=== PATIENT | male | born 1955 | race American Indian/Alaskan Native ===

== ENCOUNTER 2016-04-14 17:15 | Emergency (ER) | payer BC, OTHER ==
[2016-04-14 18:18] LABS: Eosinophils % (Auto) 3.5 % (0.0-4.3); Mean Corpuscular HGB Conc 33 % (32-34); Mean Corpuscular Hemoglobin 29 pg (28-32); Mean Corpuscular Volume 86 fl (84-94); Platelet Count 233 K/mm3 (140-440); Red Blood Count 4.89 M/mm3 (3.65-5.03); Red Cell Distribution Width 15.4 % (13.2-15.2); White Blood Count 4.3 K/mm3 (4.5-11.0)
[2016-04-14 19:05] LABS: Alanine Aminotransferase 10 units/L (7-56); Albumin 4.3 g/dL (3.9-5); Albumin/Globulin Ratio 1.4 %; Alkaline Phosphatase 68 units/L (35-129); Anion Gap 18 mmol/L; BUN/Creatinine Ratio 11.25; Bilirubin,Total 1.8 mg/dL (0.1-1.2); Blood Urea Nitrogen 9 mg/dL (9-20); Calcium 9.2 mg/dL (8.4-10.2); Carbon Dioxide 24 mmol/L (22-30); Chloride 101.5 mmol/L (98-107); Glucose 217 mg/dL (75-100); Lipase 15 units/L (13-60); Potassium 3.8 mmol/L (3.6-5.0); Sodium 140 mmol/L (137-145); Total Protein 7.4 g/dL (6.3-8.2)
[2016-04-14] MEDS ORDERED: NACL 0.9% 1000 ML 1,000 ML IV ONE (22:30)
[2016-04-14] MEDS ORDERED: ZOFRAN IV ONE (22:30)
[2016-04-14] MEDS ORDERED: TORADOL IV ONE (22:30)
--- NOTE | 2016-04-14 22:49 | Emergency Department Report ---
ED Abdominal Pain HPI - General Chief Complaint: Abdominal Pain Stated Complaint: ABD PAIN LT FRONT/BACK PAIN Time Seen by Provider: 04/14/16 22:25 Source: patient Mode of arrival: Ambulatory Limitations: No Limitations - History of Present Illness Initial Comments: 60-year-old male with a past medical history insulin-dependent diabetes and hypertension presents to the hospital with complaints of left lower quadrant pain radiating to the back. Patient denies previous abdominal surgeries. Pain is ongoing for the past 4 days, intermittent, sharp in nature. Pain rated 10/ 10 intensity worse with palpation. Patient had approximately one episode of vomiting daily. He denies dysuria, hematuria, or fever. - Related Data Home Medications Medication Instructions Recorded Confirmed Last Taken metFORMIN [Glucophage] 500 mg PO BID 08/18/14 06/21/15 06/21/15 Amlodipine Besylate/Benazepril 1 each PO DAILY 06/21/15 06/21/15 06/20/15 [Amlodipine-Benazepril 10-20 mg] 10-40MG AtorvaSTATin [Lipitor] 20 mg PO DAILY 06/21/15 06/21/15 06/20/15 Levothyroxine [Synthroid] 50 mcg PO QAM 06/21/15 06/21/15 06/20/15 Previous Rx's Medication Instructions Recorded Last Taken Type Ibuprofen [Motrin] 800 mg PO Q8HR PRN #30 tablet 04/15/16 Unknown Rx Ondansetron [Zofran Odt] 4 mg PO Q8HR PRN #20 tab.rapdis 04/15/16 Unknown Rx traMADol [Ultram 50 MG tab] 50 mg PO Q6HR PRN #20 tablet 04/15/16 Unknown Rx Allergies Allergy/AdvReac Type Severity Reaction Status Date / Time No Known Allergies Allergy Unverified 06/21/15 11:56 ED Review of Systems ROS: Stated complaint: ABD PAIN LT FRONT/BACK PAIN Other details as noted in HPI Comment: All other systems reviewed and negative Other: Constitutional: No fevers chills Eyes: No eye pain visual changes ENT: No ear pain or throat pain Neck: Denies pain Respiratory: Denies cough wheezing shortness of breath Cardiovascular: Denies chest pain, palpitations, syncope GI: As per HPI : Denies dysuria Musculoskeletal: Denies back pain, joint swelling Skin: Denies rash, lesions, erythema Neurologic: Denies headache, numbness, weakness Psychiatric: Denies suicidal ideation, hallucinations ED Past Medical Hx - Past Medical History Hx Hypertension: Yes Hx Diabetes: Yes (IDDM) Additional medical history: thyroid, knee problems - Surgical History Additional Surgical History: Left shoulder surgery - Social History Smoking Status: Never Smoker Substance Use Type: None - Medications Home Medications: Home Medications Medication Instructions Recorded Confirmed Last Taken Type metFORMIN [Glucophage] 500 mg PO BID 08/18/14 06/21/15 06/21/15 History Amlodipine Besylate/Benazepril 1 each PO DAILY 06/21/15 06/21/15 06/20/15 History [Amlodipine-Benazepril 10-20 mg] 10-40MG AtorvaSTATin [Lipitor] 20 mg PO DAILY 06/21/15 06/21/15 06/20/15 History Levothyroxine [Synthroid] 50 mcg PO QAM 06/21/15 06/21/15 06/20/15 History Ibuprofen [Motrin] 800 mg PO Q8HR PRN #30 tablet 04/15/16 Unknown Rx Ondansetron [Zofran Odt] 4 mg PO Q8HR PRN #20 tab.rapdis 04/15/16 Unknown Rx traMADol [Ultram 50 MG tab] 50 mg PO Q6HR PRN #20 tablet 04/15/16 Unknown Rx ED Physical Exam - General Limitations: No Limitations - Other Other exam information: General: No limitations, patient is alert in no acute distress Head exam: Atraumatic, normocephalic Eyes exam: Normal appearance, pupils equal reactive to light, extraocular movements intact ENT: Moist mucous membrane, normal oropharynx Neck exam: Normal inspection, full range of motion, no meningismus nontender Respiratory exam: Clear to auscultation bilateral, no wheezes, rales, crackles Cardiovascular: Normal rate and rhythm, normal heart sounds Abdomen: Soft, nondistended, left lower quadrant tenderness, with normal bowel sounds, no rebound, or guarding Extremity: Full range of motion normal inspection no deformity Back: Normal Inspection, full range of motion, no mild left lower lateral lumbar tenderness Neurologic: Alert, oriented x3, cranial nerves intact, no motor or sensory deficit Psychiatric: normal affect, normal mood Skin: Warm, dry, intact ED Course Vital Signs 04/14/16 04/14/16 17:28 23:11 Temperature 97.9 F Pulse Rate 89 Respiratory 20 Rate Blood Pressure 169/109 O2 Sat by Pulse 98 Oximetry - Reevaluation(s) Reevaluation #1: 04/15/16 01:15 pt has received 1 L of IVF Reevaluation #2: 04/15/16 01:20 bp 159/92 without receiving the ordered catapress ED Medical Decision Making - Lab Data Result diagrams: 04/14/16 18:01 04/14/16 18:01 Lab Results 04/14/16 04/14/16 04/15/16 Range/Units 18:01 18:01 Unknown WBC 4.3 L (4.5-11.0) K/mm3 RBC 4.89 (3.65-5.03) M/mm3 Hgb 14.0 (11.8-15.2) gm/dl Hct 42.0 (35.5-45.6) % MCV 86 (84-94) fl MCH 29 (28-32) pg MCHC 33 (32-34) % RDW 15.4 H (13.2-15.2) % Plt Count 233 (140-440) K/mm3 Lymph % (Auto) 37.8 H (13.4-35.0) % Gove % (Auto) 7.6 H (0.0-7.3) % Eos % (Auto) 3.5 (0.0-4.3) % Baso % (Auto) 1.0 (0.0-1.8) % Lymph # 1.6 (1.2-5.4) K/mm3 Gove # 0.3 (0.0-0.8) K/mm3 Eos # 0.2 (0.0-0.4) K/mm3 Baso # 0.0 (0.0-0.1) K/mm3 Seg Neutrophils % 50.1 (40.0-70.0) % Seg Neutrophils # 2.2 (1.8-7.7) K/mm3 Sodium 140 (137-145) mmol/L Potassium 3.8 (3.6-5.0) mmol/L Chloride 101.5 (98-107) mmol/L Carbon Dioxide 24 (22-30) mmol/L Anion Gap 18 mmol/L BUN 9 (9-20) mg/dL Creatinine 0.8 (0.8-1.5) mg/dL Estimated GFR > 60 ml/min BUN/Creatinine Ratio 11.25 % Glucose 217 H (75-100) mg/dL Calcium 9.2 (8.4-10.2) mg/dL Total Bilirubin 1.8 H (0.1-1.2) mg/dL AST 15 (5-40) units/L ALT 10 (7-56) units/L Alkaline Phosphatase 68 (35-129) units/L Total Protein 7.4 (6.3-8.2) g/dL Albumin 4.3 (3.9-5) g/dL Albumin/Globulin Ratio 1.4 % Lipase 15 (13-60) units/L Urine Color Yellow (Yellow) Urine Turbidity Clear (Clear) Urine pH 5.0 (5.0-7.0) Ur Specific Cardinal 1.038 H (1.003-1.030) Urine Protein <15 mg/dl (Negative) mg/dL Urine Glucose (UA) Neg (Negative) mg/dL Urine Ketones Tr (Negative) mg/dL Urine Blood Neg (Negative) Urine Nitrite Neg (Negative) Urine Bilirubin Sm (Negative) Urine Ictotest Negative (Negative) Urine Urobilinogen 4.0 (<2.0) mg/dL Ur Leukocyte Esterase Sm (Negative) Urine WBC (Auto) 7.0 H (0.0-6.0) /HPF Urine RBC (Auto) 5.0 (0.0-6.0) /HPF U Epithel Cells (Auto) 3.0 (0-13.0) /HPF Urine Mucus 2+ /HPF - Radiology Data Radiology results: report reviewed (CT abdomen and pelvis IV contrast: Tiny left renal stone no inflammation or hydro) - Medical Decision Making Plan to d/c pt home with pain meds. it is possible that patient passed a kidney stone given the finding of intrarenal stone and LLq pain. No signs of inflammatory changes seen of left lower quadrant suggestive of diverticulitis. Labs unremarkable. Patient will be sent home with symptomatic treatment with pain medication - Differential Diagnosis renal colic, diverticulitis, UTI, abdominal wall strain Critical Care Time: No Critical care attestation.: If time is entered above; I have spent that time in minutes in the direct care of this critically ill patient, excluding procedure time. ED Disposition Clinical Impression: LLQ pain, Renal stone, Diabetes HTN (hypertension) Qualifiers: Hypertension type: essential hypertension Qualified Code(s): I10 - Essential ( primary) hypertension Disposition: DISCHARGED TO HOME OR SELFCARE Is pt being admited?: No Condition: Stable Instructions: Hypertension (ED), Acute Abdominal Pain (ED), Kidney Stones (ED) Additional Instructions: Take the medication as prescribed. Return if symptoms worsen. Prescriptions: Ibuprofen [Motrin] 800 mg PO Q8HR PRN #30 tablet PRN Reason: Overdose Ondansetron [Zofran Odt] 4 mg PO Q8HR PRN #20 tab.rapdis PRN Reason: Nausea And Vomiting traMADol [Ultram 50 MG tab] 50 mg PO Q6HR PRN #20 tablet PRN Reason: Pain Referrals: PRIMARY CARE,MD [Primary Care Provider] - 3-5 Days Time of Disposition: 01:24
[2016-04-14] MEDS ORDERED: NACL ONE (22:52)
[2016-04-14] MEDS ORDERED: CATAPRES PO ONE (23:41)
--- NOTE | 2016-04-15 00:33 | Cat Scan Report ---
FINAL REPORT EXAM: CT ABDOMEN PELVIS W CON HISTORY: llq pain TECHNIQUE: CT abdomen and pelvis with IV contrast. Multiplanar reformations. PRIORS: None FINDINGS: Lung bases show no significant abnormality. No free intraperitoneal gas seen. Liver shows no significant abnormality. Normal biliary tree. Spleen shows no significant abnormality. Adrenal glands show no significant abnormality. 2 mm stone upper pole left kidney. Few small renal cysts on the right. Pancreas shows no significant abnormality. Abdominal aorta is non-aneurysmal. Normal-appearing appendix. No right lower quadrant inflammatory changes. No bowel obstruction identified. No ureteral calculus seen on either side. No acute inflammatory process seen. IMPRESSION: 1. Tiny left renal calculus. No acute inflammation. No hydronephrosis.
[2016-04-15 01:08] LABS: Bilirubin,Urine SM (Negative); Blood,Urine NEG (Negative); Ketones,Urine TR mg/dL (Negative); Leukocyte Esterase,Urine SM (Negative); Mucus,Urine 2+ /HPF; Nitrite,Urine NEG (Negative); Protein,Urine <15 mg/dL mg/dL (Negative)
[2016-04-15 02:00] VITALS: BP 159/92
== END 2016-04-15 02:07 | disposition home or self-care (01) ==
LOC: ED 17:15
DX: N20.0 Calculus of kidney (principal); I10 Essential (primary) hypertension; R10.32 Left lower quadrant pain; E11.9 Type 2 diabetes mellitus without complications
CPT/HCPCS: 36415; 74177; 80053; 81001; 83690; 85025; 96361; 96374; 96375; 99284; J1885; J2405; J7030; Q9967

== ENCOUNTER 2018-03-26 11:47 | Inpatient (IN) | payer OTHER ==
--- NOTE | 2018-03-26 12:32 | Emergency Department Report ---
ED Neuro Deficit HPI - General Chief Complaint: Weakness Stated Complaint: Slurred speech, PANCREATIC PAIN Time Seen by Provider: 03/26/18 12:06 Source: patient, family Mode of arrival: Ambulatory Limitations: Other - History of Present Illness Initial Comments: 62-year-old male presents to the ED with complaint of slurred speech onset 3 days ago. Patient denies extremity weakness. Patient was seen by PCP at the [facility] and told to come to the ER. Patient also reports possible exacerbation of his pancreatitis. Reports epigastric pain, nausea and vomiting. States his stomach issues are chronic, vomiting stopped 5 days ago. -: days(s) (3) Location: speech Presenting Symptoms: Present: Unable to Speak Clearly History of same: No Severity: mild Improves With: none Worsens With: none Associated Symptoms: nausea/vomiting. denies: chest pain, headaches, shortness of breath - Related Data Home Medications: Home Medications Medication Instructions Recorded Confirmed Last Taken Allopurinol [Zyloprim] 100 mg PO QDAY 10/26/16 03/26/18 Unknown Levothyroxine Sodium 137 mcg PO QAM 10/26/16 03/26/18 Unknown [Levothyroxine] Tamsulosin [Flomax] 0.4 mg PO QDAY 10/26/16 03/26/18 Unknown Amlodipine Besylate/Benazepril 1 each PO DAILY 03/26/18 03/26/18 Unknown [Amlodipine-Benazepril 10-20 mg] AtorvaSTATin [Lipitor] 40 mg PO QHS 03/26/18 03/26/18 Unknown Colchicine 0.6 mg PO Q24H 03/26/18 03/26/18 Unknown Etodolac 400 mg PO BID 03/26/18 03/26/18 Unknown Furosemide [Lasix] 20 mg PO QDAY 03/26/18 03/26/18 Unknown Pregabalin [Lyrica] 200 mg PO BID 03/26/18 03/26/18 Unknown cloNIDine [Catapres] 0.2 mg PO QHS 03/26/18 03/26/18 Unknown metFORMIN [Glucophage] 500 mg PO BID 03/26/18 03/26/18 Unknown Previous Rx's Medication Instructions Recorded Last Taken Type Insulin NPH/Regular [Novolin 70/30] 50 unit SQ BIDDIAB #30 day 11/08/16 Unknown Rx Allergies/Adverse Reactions: Allergies Allergy/AdvReac Type Severity Reaction Status Date / Time No Known Allergies Allergy Verified 10/26/16 13:28 ED Review of Systems ROS: Stated complaint: PANCREATIC PAIN Other details as noted in HPI Comment: All other systems reviewed and negative Constitutional: denies: chills, fever Respiratory: denies: shortness of breath Cardiovascular: denies: chest pain Gastrointestinal: abdominal pain, nausea, vomiting Neurological: other (slurred speech) ED Past Medical Hx - Past Medical History Hx Hypertension: Yes Hx Heart Attack/AMI: No Hx Congestive Heart Failure: No Hx Diabetes: Yes (IDDM) Hx Liver Disease: No Hx Renal Disease: No Hx Sickle Cell Disease: No Hx Seizures: No Hx Asthma: Yes (last episode many yrs ago) Hx COPD: No Additional medical history: thyroid, knee problems. high cholesterol. ga llstones - Surgical History Additional Surgical History: Left shoulder surgery - Social History Smoking Status: Never Smoker Substance Use Type: None - Medications Home Medications: Home Medications Medication Instructions Recorded Confirmed Last Taken Type Allopurinol [Zyloprim] 100 mg PO QDAY 10/26/16 03/26/18 Unknown History Levothyroxine Sodium 137 mcg PO QAM 10/26/16 03/26/18 Unknown History [Levothyroxine] Tamsulosin [Flomax] 0.4 mg PO QDAY 10/26/16 03/26/18 Unknown History Insulin NPH/Regular [Novolin 70/30] 50 unit SQ BIDDIAB #30 day 11/08/16 03/26/18 Unknown Rx Amlodipine Besylate/Benazepril 1 each PO DAILY 03/26/18 03/26/18 Unknown History [Amlodipine-Benazepril 10-20 mg] AtorvaSTATin [Lipitor] 40 mg PO QHS 03/26/18 03/26/18 Unknown History Colchicine 0.6 mg PO Q24H 03/26/18 03/26/18 Unknown History Etodolac 400 mg PO BID 03/26/18 03/26/18 Unknown History Furosemide [Lasix] 20 mg PO QDAY 03/26/18 03/26/18 Unknown History Pregabalin [Lyrica] 200 mg PO BID 03/26/18 03/26/18 Unknown History cloNIDine [Catapres] 0.2 mg PO QHS 03/26/18 03/26/18 Unknown History metFORMIN [Glucophage] 500 mg PO BID 03/26/18 03/26/18 Unknown History ED Neuro Physical Exam - General Limitations: No Limitations General appearance: alert, in no apparent distress Suspected Stroke: Yes - Head Head exam: Present: atraumatic, normocephalic - Eye Eye exam: Present: normal appearance - ENT ENT exam: Present: mucous membranes moist - Neck Neck exam: Present: normal inspection - Respiratory Respiratory exam: Present: normal lung sounds bilaterally. Absent: respiratory distress - Cardiovascular Cardiovascular Exam: Present: regular rate, normal rhythm - GI/Abdominal GI/Abdominal exam: Present: soft. Absent: distended - Extremities Exam Extremities exam: Present: normal inspection - Neurological Exam Neurological exam: Present: alert, oriented X3 - NIHSS Assessment Interval: Baseline 1a. Level of Consciousness: alert/keenly responsive 1b. LOC Questions: answers both correctly 1c. LOC Commands: performs tasks correctly 2. Best Gaze: normal 3. Visual: no visual loss 4. Facial Palsy: minor paralysis 5b. Motor Arm Right: no drift 5a. Motor Arm Left: drift 6a. Motor Leg Left: drift 6b. Motor Leg Right: no drift 7. Limb Ataxia: absent 8. Sensory: normal 9. Best Language: no aphasia 10. Dysarthria: mild/moderate dysarthria 11. Extinction/Inattention: no abnormality Total Score: 4 Stroke Severity: Minor Stroke - Psychiatric Psychiatric exam: Present: normal affect, normal mood - Skin Skin exam: Present: warm, dry, intact, normal color ED Course Vital Signs 03/26/18 03/26/18 11:55 12:02 Temperature 97.9 F 97.9 F Pulse Rate 84 75 Respiratory 18 15 Rate Blood Pressure 164/79 Blood Pressure 144/82 [Right] O2 Sat by Pulse 99 96 Oximetry - Lab Data Result diagrams: 03/26/18 13:21 03/26/18 13:21 Lab Results 03/26/18 03/26/18 Range/Units 13:21 13:21 WBC 4.5 (4.5-11.0) K/mm3 RBC 4.28 (3.65-5.03) M/mm3 Hgb 12.3 (11.8-15.2) gm/dl Hct 37.2 (35.5-45.6) % MCV 87 (84-94) fl MCH 29 (28-32) pg MCHC 33 (32-34) % RDW 16.1 H (13.2-15.2) % Plt Count 188 (140-440) K/mm3 Lymph % (Auto) 31.1 (13.4-35.0) % [place] % (Auto) 15.5 H (0.0-7.3) % Eos % (Auto) 6.4 H (0.0-4.3) % Baso % (Auto) 0.4 (0.0-1.8) % Lymph # 1.4 (1.2-5.4) K/mm3 [place]shaw # 0.7 (0.0-0.8) K/mm3 Eos # 0.3 (0.0-0.4) K/mm3 Baso # 0.0 (0.0-0.1) K/mm3 Seg Neutrophils % 46.6 (40.0-70.0) % Seg Neutrophils # 2.1 (1.8-7.7) K/mm3 Sodium 136 L (137-145) mmol/L Potassium 4.2 (3.6-5.0) mmol/L Chloride 97.4 L (98-107) mmol/L Carbon Dioxide 24 (22-30) mmol/L Anion Gap 19 mmol/L BUN 10 (9-20) mg/dL Creatinine 1.3 (0.8-1.5) mg/dL Estimated GFR > 60 ml/min BUN/Creatinine Ratio 8 % Glucose 444 H (75-100) mg/dL Calcium 9.2 (8.4-10.2) mg/dL Total Bilirubin 0.70 (0.1-1.2) mg/dL AST 16 (5-40) units/L ALT 32 (7-56) units/L Alkaline Phosphatase 110 (35-129) units/L Total Protein 6.7 (6.3-8.2) g/dL Albumin 3.7 L (3.9-5) g/dL Albumin/Globulin Ratio 1.2 % Lipase 20 (13-60) units/L - EKG Data -: EKG Interpreted by Nh EKG shows normal: sinus rhythm, intervals, QRS complexes, ST-T waves Rate: normal Interpretation: other (left axis deviation) - Radiology Data Radiology results: report reviewed, image reviewed - Medical Decision Making 62-year-old male with 3 day history of slurred speech. Patient also appears to have mild facial droop and slight weakness in the left arm and leg. CT head negative for any findings of acute CVA. Labs show the patient is hyperglycemic, no signs of DKA. IV fluids and insulin administered. Will admit to hospitalist for further evaluation. - Differential Diagnosis CVA, pancreatitis, DKA - Thrombolytic Inclusion/Exclusion Thrombolytic Exclusion Criteria: Symptom Onset > 3 Hours Critical care attestation.: If time is entered above; I have spent that time in minutes in the direct care of this critically ill patient, excluding procedure time. ED Disposition Clinical Impression: CVA (cerebral vascular accident) Disposition: OP ADMIT IP TO THIS HOSP Is pt being admited?: Yes Condition: Stable Referrals: PRIMARY CARE, [Primary Care Provider] - 3-5 Days Time of Disposition: 14:28
--- NOTE | 2018-03-26 13:19 | Cat Scan Report ---
FINAL REPORT EXAM: CT HEAD/BRAIN WO CON HISTORY: slurred speech TECHNIQUE: CT examination of the head without IV contrast PRIORS: None. FINDINGS: Cerebrovascular atherosclerosis is manifest as calcified plaque in the carotid siphons and the verteb ral arteries. No acute air-fluid level visualized in the included air-filled sinuses. Bone windows demonstrate no acute fracture. The brain is without mass, mass effect, hemorrhage, or acute infarct. There is no extra-axial intracranial bleed, brain bleed, or midline shift. The ventricles and sulci are age-appropriate. IMPRESSION: No acute CVA, intracranial bleed, or brain mass
[2018-03-26 13:37] LABS: Basophils % (Auto) 0.4 % (0.0-1.8); Eosinophils # (Auto) 0.3 K/mm3 (0.0-0.4); Eosinophils % (Auto) 6.4 % (0.0-4.3); Hematocrit 37.2 % (35.5-45.6); Hemoglobin 12.3 gm/dl (11.8-15.2); Lymphocytes # (Auto) 1.4 K/mm3 (1.2-5.4); Lymphocytes % (Auto) 31.1 % (13.4-35.0); Mean Corpuscular HGB Conc 33 % (32-34); Mean Corpuscular Volume 87 fl (84-94); Monocytes # (Auto) 0.7 K/mm3 (0.0-0.8); Monocytes % (Auto) 15.5 % (0.0-7.3); Platelet Count 188 K/mm3 (140-440); Red Blood Count 4.28 M/mm3 (3.65-5.03); Red Cell Distribution Width 16.1 % (13.2-15.2)
[2018-03-26 14:15] LABS: Alanine Aminotransferase 32 units/L (7-56); BUN/Creatinine Ratio 8; Blood Urea Nitrogen 10 mg/dL (9-20); Calcium 9.2 mg/dL (8.4-10.2)
[2018-03-26 14:16] LABS: Albumin 3.7 g/dL (3.9-5); Hemolysis Index 9
[2018-03-26] MEDS ORDERED: NACL 0.9% 1000 ML 1,000 ML IV ONE (14:21)
[2018-03-26] MEDS ORDERED: HumuLIN R IV ONE (14:21)
[2018-03-26 15:02] LABS: Bilirubin,Urine NEG (Negative); Blood,Urine NEG (Negative); Color,Urine Yellow (Yellow); Protein,Urine <15 mg/dL mg/dL (Negative); WBC,Urine < 1.0 /HPF (0.0-6.0)
[2018-03-26] MEDS ORDERED: HumuLIN R ONE (20:02)
[2018-03-26] MEDS ORDERED: TYLENOL PO PRN (20:03)
[2018-03-26] MEDS ORDERED: SODIUM CHLORIDE FLUSH SYRINGE 10 ML IV PRN ×2 (20:03→20:06)
[2018-03-26] MEDS ORDERED: BENAZEPRIL PO SCH (20:15)
[2018-03-26] MEDS ORDERED: AMLODIPINE BESYLATE PO SCH (20:15)
[2018-03-26] MEDS ORDERED: NON-FORMULARY (Pregabalin [Lyrica] 200 MG) PO SCH (22:00)
[2018-03-26] MEDS: LYRICA PO SCH ×2 (23:00)
[2018-03-26] MEDS: FLOMAX PO SCH (23:01)
[2018-03-26] MEDS: ASPIRIN PO SCH (23:01)
[2018-03-26] MEDS: NORVASC PO SCH (23:01)
[2018-03-26] MEDS: HumaLOG SUB-Q SCH (23:05)
[2018-03-26] MEDS: CATAPRES PO SCH (23:05)
[2018-03-26] MEDS: ZESTRIL PO SCH (23:06)
[2018-03-26] MEDS: SODIUM CHLORIDE FLUSH SYRINGE 10 ML IV SCH (23:06)
[2018-03-27 06:33] LABS: Basophils % (Auto) 0.6 % (0.0-1.8); Eosinophils # (Auto) 0.4 K/mm3 (0.0-0.4); Eosinophils % (Auto) 8.6 % (0.0-4.3); Hematocrit 34.2 % (35.5-45.6); Hemoglobin 11.4 gm/dl (11.8-15.2); Lymphocytes # (Auto) 1.3 K/mm3 (1.2-5.4); Lymphocytes % (Auto) 31.3 % (13.4-35.0); Mean Corpuscular HGB Conc 33 % (32-34); Mean Corpuscular Volume 88 fl (84-94); Monocytes # (Auto) 0.5 K/mm3 (0.0-0.8); Monocytes % (Auto) 13.1 % (0.0-7.3); Platelet Count 170 K/mm3 (140-440); Red Blood Count 3.91 M/mm3 (3.65-5.03)
--- NOTE | 2018-03-27 06:42 | Event Note ---
Date: 03/26/18 See dictated H/p in reports
[2018-03-27 06:46] LABS: Alanine Aminotransferase 29 units/L (7-56); Albumin 3.3 g/dL (3.9-5); BUN/Creatinine Ratio 9; Blood Urea Nitrogen 9 mg/dL (9-20); Calcium 8.7 mg/dL (8.4-10.2); Chol/HDL Ratio 3.38 %; HDL Cholesterol 31 mg/dL (40-59); Hemolysis Index 3; LDL Cholesterol,Direct 69 mg/dL (50-130)
[2018-03-27] MEDS: SYNTHROID PO SCH ×2 (07:01)
[2018-03-27] MEDS: LASIX PO SCH (07:01)
--- NOTE | 2018-03-27 08:24 | History and Physical Report ---
CHIEF COMPLAINT: Slurred speech of 3 days' duration and left-sided weakness 3 days duration. HISTORY OF PRESENT ILLNESS: A 62-year-old male comes in with past medical history of BPH, hypertension, hyperlipidemia, gout and peripheral neuropathy and type 2 diabetes, comes in for slurred speech and left upper extremity weakness and left lower extremity weakness for the last 3 days. The patient tolerated his mild weakness and did not seek any medical attention for the last 3 days. The patient felt that it may have been his pancreatitis. The patient was seen at the and was sent to the ER. Acute onset of left-sided weakness 3 days ago. PAST MEDICAL HISTORY: Significant for hypertension, insulin-dependent diabetes, asthma, and hypothyroidism, gout, and arthritis. Also, hyperlipidemia. PAST SURGICAL HISTORY: Left shoulder surgery. SOCIAL HISTORY: Does not smoke. No alcohol, no recreational drugs. FAMILY HISTORY: Hypertension. CURRENT MEDICATIONS: On the chart. REVIEW OF SYSTEMS: Significant for left upper extremity weakness, slurred speech, and left lower extremity weakness. Says the patient is able to walk. Otherwise, review of systems negative. PHYSICAL EXAMINATION: GENERAL: Elderly male, cooperative during examination. VITAL SIGNS: Blood pressure is 152/82. Temperature is 97.4. Pulse is 62. Respirations are 20. HEENT: Unremarkable. Left facial palsy present. Upper motor neuron type. LUNGS: Clear to auscultation and percussion. Good air entry. CARDIOVASCULAR SYSTEM: S1, S2 heard. No gallop, no murmur, no rub. Apical impulse in left fifth intercostal space in midclavicular line. ABDOMEN: Soft and benign. No hepatosplenomegaly. No guarding, no rigidity. Hernial orifices are normal. EXTREMITIES: Good pedal pulses. No pedal edema. CENTRAL NERVOUS SYSTEM: Left upper extremity 2/5 power. Left lower extremity 3+/5 power. Left facial palsy present. LABORATORY DATA: Significant for white count of 4500, H and H of 12.3 and 37.2, platelet count of 188,000. Sodium of 136, BUN and creatinine of 10 and 1.3, glucose of 144. Hemoglobin A1c of 13.2, albumin of 3.7. Urine specific gravity is 1.033. ASSESSMENT AND PLAN: 1. Acute cerebrovascular accident with left-sided weakness. Cerebrovascular accident workup. MRI, MRA, echocardiogram, and carotid duplex scan ordered. Neurology consult requested. 2. Uncontrolled diabetes. Home insulin was kept on hold because of his stroke. To be added once the swallowing is confirmed and the patient is able to eat normally. In the meantime, Accu-Cheks before meals and bedtime, and coverage. Hemoglobin A1c is high. His insulin has to be adjusted higher. 3. Hypertension. Continue amlodipine and clonidine. 4. Hyperlipidemia. Continue atorvastatin. 5. Gout. Colchicine on hold, etodolac on hold. 6. Hypothyroidism. Continue levothyroxine. 7. Peripheral neuropathy. Continue Lyrica. 8. Benign prostatic hypertrophy. Continue Flomax. 9. Deep venous thrombosis prophylaxis, Lovenox 40 mg subcutaneous daily. JOB# [id number] KANU/CORTNEY SANTIAGO
[2018-03-27] MEDS ORDERED: NON-FORMULARY (Levothyroxine Sodium [Levothyroxine] 137 MCG) PO SCH (10:00)
--- NOTE | 2018-03-27 10:58 | Magnetic Resonance Report ---
MRI BRAIN WITHOUT CONTRAST: 03/27/18 CLINICAL: Stroke. TECHNIQUE: Axial diffusion, T1, T2, gradient echo T2*, coronal and axial FLAIR and sagittal T1 sequences on a 1.5 Massiel magnet. FINDINGS: The ventricles and sulci are normal for age. Focal restricted diffusion involves the right side of the felix, abuts the midline and measures 14 x 9 mm. No other restricted diffusion. There is corresponding T2 hyperintensity in the felix on FLAIR and T2. Moderate bilateral multifocal subcortical and deep white matter hyperintensities on FLAIR and T2. No mass or mass effect. No hemorrhage, edema or extra-axial collection. No chronic microbleeds on the gradient echo sequence. Normal pituitary and optic chiasm. Intact vascular flow voids. Normal sinuses. The orbits, and soft tissues are normal. Normal calvarium and skull base. IMPRESSION: 1. An acute/subacute nonhemorrhagic right pontine infarct. 2. Moderate bilateral chronic white matter microangiopathy.
--- NOTE | 2018-03-27 11:01 | Vascular Lab Report ---
FINAL REPORT EXAM: VL CAROTID DUPLEX BILAT HISTORY: stroke COMPARISON: None. TECHNIQUE: Duplex Doppler ultrasound of the carotid arteries was performed. FINDINGS: There is a very small amount of atherosclerotic plaque in the right carotid bulb and internal carotid artery causing less than 50 percent stenosis. The right external carotid artery is patent. There ant egrade flow in the right vertebral artery. There is a small amount of intimal thickening in the left carotid bulb causing less than 50 percent s tenosis. The left internal carotid artery and external carotid artery are patent. There is antegrade flow in the left vertebral artery. Peak systolic velocities (cm/sec) are as follows: Right common carotid artery: 118.3 Right internal carotid artery: 78.4 Right external carotid artery: 100.9 Left common carotid artery: 138.8 Left internal carotid artery: 88.5 Left external carotid artery: 77.3 Peak systolic velocity ratio between the right internal carotid artery and the right common carotid a rtery: 0.66 Peak systolic velocity ratio between the left internal carotid artery and left common carotid artery: 0.64 IMPRESSION: 1. Small amount of atherosclerotic plaque in the right carotid bulb and right internal carotid artery , causing less than 50 percent stenosis. 2. Small amount of intimal thickening in the left carotid bulb causing less than 50 percent stenosis. Patent left internal carotid artery.
--- NOTE | 2018-03-27 11:07 | Magnetic Resonance Report ---
MRA HEAD WITHOUT CONTRAST: 03/27/18 CLINICAL: Stroke. TECHNIQUE: Axial 3-D [id number] MR angiography of the [place] with review of axial source images. FINDINGS: Intact [place] with no stenosis or occlusion. 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 Symmetric blood flow in the anterior, middle and posterior cerebral arteries. Normal basilar and vertebral arteries. The left vertebral artery is dominant. 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 No signs of rupture. No stenoses or occlusions.
[2018-03-27] MEDS: HumaLOG SUB-Q SCH ×4 (12:14→21:08)
[2018-03-27] MEDS: ZESTRIL PO SCH (12:15)
[2018-03-27] MEDS: NORVASC PO SCH (12:15)
[2018-03-27] MEDS: PLAVIX PO SCH (12:15)
[2018-03-27] MEDS: ZYLOPRIM PO SCH (12:15)
[2018-03-27] MEDS: FLOMAX PO SCH (12:15)
[2018-03-27] MEDS: LYRICA PO SCH ×4 (12:15→21:08)
[2018-03-27] MEDS: SODIUM CHLORIDE FLUSH SYRINGE 10 ML IV SCH ×2 (12:16→21:08)
[2018-03-27] MEDS: ASPIRIN PO SCH (12:16)
[2018-03-27] MEDS: CATAPRES PO SCH ×2 (12:25→21:09)
--- NOTE | 2018-03-27 15:41 | Consultation ---
History of Present Illness Consult date: 03/27/18 Requesting physician: CORY HAWKINS Reason for Consult: acute pontine stroke History of present illness: 62 yr old left handed male with hx of pancreatitis, hypertension, diabetes, hypothyroidism, presented to ER on 03/26/18 with hx of slurred speech for 3 days. He awakened 03/23/18 with thicjk speech, but no other problems. Since then he has developed weakness in his left arm and leg. He admits having headache Sat., a.m. when he noted a change in speech. This later faded. ER notes do not mention leg and arm weakness. The pt. meanwhile denies chest pain, palpitations, diplopia, blurred vision, dizziness, vertigo, numbness with these symptoms. Past History Past Medical History: diabetes, hypertension, hypothyroidism, other (pancreatitis) Social history: denies: smoking, alcohol abuse Family history: CAD, diabetes, hypertension, stroke Medications and Allergies Allergies Allergy/AdvReac Type Severity Reaction Status Date / Time No Known Allergies Allergy Verified 10/26/16 13:28 Home Medications Medication Instructions Recorded Confirmed Last Taken Type Allopurinol [Zyloprim] 100 mg PO QDAY 10/26/16 03/26/18 Unknown History Levothyroxine Sodium 137 mcg PO QAM 10/26/16 03/26/18 Unknown History [Levothyroxine] Tamsulosin [Flomax] 0.4 mg PO QDAY 10/26/16 03/26/18 Unknown History Insulin NPH/Regular [Novolin 70/30] 50 unit SQ BIDDIAB #30 day 11/08/16 03/26/18 Unknown Rx Amlodipine Besylate/Benazepril 1 each PO DAILY 03/26/18 03/26/18 Unknown History [Amlodipine-Benazepril 10-20 mg] AtorvaSTATin [Lipitor] 40 mg PO QHS 03/26/18 03/26/18 Unknown History Colchicine 0.6 mg PO Q24H 03/26/18 03/26/18 Unknown History Etodolac 400 mg PO BID 03/26/18 03/26/18 Unknown History Furosemide [Lasix] 20 mg PO QDAY 03/26/18 03/26/18 Unknown History Pregabalin [Lyrica] 200 mg PO BID 03/26/18 03/26/18 Unknown History cloNIDine [Catapres] 0.2 mg PO QHS 03/26/18 03/26/18 Unknown History metFORMIN [Glucophage] 500 mg PO BID 03/26/18 03/26/18 Unknown History Active Meds: Active Medications Acetaminophen (Tylenol) 650 mg PO Q4H PRN PRN Reason: Pain MILD(1-3)/Fever >100.5/[place] Allopurinol (Zyloprim) 100 mg PO QDAY [facility] Last Admin: 03/27/18 12:15 Dose: 100 mg Documented by: Amlodipine Besylate (Norvasc) 10 mg PO DAILY [facility] Last Admin: 03/27/18 12:15 Dose: 10 mg Documented by: Aspirin (Aspirin) 325 mg PO QDAY [facility] Last Admin: 03/27/18 12:16 Dose: 325 mg Documented by: Atorvastatin Calcium (Lipitor) 40 mg PO QHS [facility] Last Admin: 03/26/18 23:00 Dose: 40 mg Documented by: Clonidine HCl (Catapres) 0.2 mg PO Q12H [facility] Last Admin: 03/27/18 12:25 Dose: 0.2 mg Documented by: Clopidogrel Bisulfate (Plavix) 75 mg PO QDAY [facility] Last Admin: 03/27/18 12:15 Dose: 75 mg Documented by: Enoxaparin Sodium (Lovenox) 40 mg SUB-Q QDAY@2200 [facility] Furosemide (Lasix) 20 mg PO DAILY@0600 [facility] Last Admin: 03/27/18 07:01 Dose: 20 mg Documented by: Hydromorphone HCl (Dilaudid) 0.5 mg IV Q3H PRN PRN Reason: Pain , Severe (7-10) Insulin Human Isoph/Insulin Regular (Humulin 70/30) 50 unit SUB-Q BIDDIAB [facility] Last Admin: 03/27/18 12:25 Dose: 50 unit Documented by: Insulin Human Lispro (Humalog) 0 unit SUB-Q [facility]; Protocol Last Admin: 03/27/18 12:18 Dose: 8 unit Documented by: Levothyroxine Sodium (Synthroid) 112 mcg PO DAILY@0600 [facility] Last Admin: 03/27/18 07:01 Dose: 112 mcg Documented by: Levothyroxine Sodium (Synthroid) 25 mcg PO DAILY@0600 [facility] Last Admin: 03/27/18 07:01 Dose: 25 mcg Documented by: Lisinopril (Zestril) 20 mg PO QDAY [facility] Last Admin: 03/27/18 12:15 Dose: 20 mg Documented by: Ondansetron HCl (Zofran) 4 mg IV Q8H PRN PRN Reason: Nausea And Vomiting Oxycodone/Acetaminophen (Percocet 5/325) 1 tab PO Q6H PRN PRN Reason: Pain, Moderate (4-6) Pregabalin (Lyrica) 150 mg PO BID [facility] Last Admin: 03/27/18 12:15 Dose: 150 mg Documented by: Pregabalin (Lyrica) 50 mg PO BID [facility] Last Admin: 03/27/18 12:15 Dose: 50 mg Documented by: Sodium Chloride (Sodium Chloride Flush Syringe 10 Ml) 10 ml IV BID [facility] Last Admin: 03/27/18 12:16 Dose: 10 ml Documented by: Sodium Chloride (Sodium Chloride Flush Syringe 10 Ml) 10 ml IV PRN PRN PRN Reason: LINE FLUSH Sodium Chloride (Sodium Chloride Flush Syringe 10 Ml) 10 ml IV PRN PRN PRN Reason: LINE FLUSH Tamsulosin HCl (Flomax) 0.4 mg PO QDAY [facility] Last Admin: 03/27/18 12:15 Dose: 0.4 mg Documented by: Review of Systems All systems: negative (weakness in left arm and leg.) Physical Examination - Vital Signs Vital Signs: Vital Signs Temp Pulse Resp BP Pulse Ox 97.9 F 84 18 164/79 99 03/26/18 11:55 03/26/18 11:55 03/26/18 11:55 03/26/18 11:55 03/26/18 11:55 - Physical Exam Narrative exam: Neuurological exam - Speech very dysarthric. Language intact. 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 V-1 thru V-3 intact bilaterally, face - left droop. tongue midline, hearing intact. Motor - 5/5 on the right. 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 LLE - iliopsoas - 3-/5, Quads - 4+/5, foot dorsiflexors - 4/5, plantar flexors - 4/5 Reflexes - +1 throughout. Sensory - intact to touch and sharp bilaterally. Cerebellar - able to perform Loretta, FFM, and FTN well with right. . Can perform them with lt. hand with clumsiness and weakness, - Assessment Assessment Interval: Baseline - Level of Consciousness 1a. Level of Consciousness: alert/keenly responsive - LOC Questions 1b. LOC Questions: answers both correctly - LOC Command 1c. LOC Commands: performs tasks correctly - Best Gaze 2. Best Gaze: normal - Visual 3. Visual: no visual loss - Facial Palsy 4. Facial Palsy: minor paralysis - Motor Arm 5b. Motor Arm Right: no drift - Motor Leg 6a. Motor Leg Left: drift - Limb Ataxia 7. Limb Ataxia: absent - Sensory 8. Sensory: normal - Best Language 9. Best Language: no aphasia - Dysarthria 10. Dysarthria: mild/moderate dysarthria - Extinction and Inattention 11. Extinction/Inattention: no abnormality Results - Laboratory Findings CBC and BMP: 03/27/18 06:13 03/27/18 06:13 Abnormal Lab Findings: Abnormal Labs 03/26/18 03/26/18 03/26/18 13:21 13:21 13:21 WBC Hgb Hct RDW 16.1 H [place] % (Auto) 15.5 H Eos % (Auto) 6.4 H Sodium 136 L Chloride 97.4 L Glucose 444 H POC Glucose Hemoglobin A1c 13.2 H Total Protein Albumin 3.7 L HDL Cholesterol Ur Specific [place] 03/26/18 03/26/18 03/27/18 14:45 21:18 06:13 WBC 4.1 L Hgb 11.4 L Hct 34.2 L RDW 16.0 H [place] % (Auto) 13.1 H Eos % (Auto) 8.6 H Sodium Chloride Glucose POC Glucose 328 H Hemoglobin A1c Total Protein Albumin HDL Cholesterol Ur Specific [place] 1.033 H 03/27/18 03/27/18 06:13 07:15 WBC Hgb Hct RDW [place] % (Auto) Eos % (Auto) Sodium Chloride Glucose 380 H POC Glucose 355 H Hemoglobin A1c Total Protein 5.6 L Albumin 3.3 L HDL Cholesterol 31 L Ur Specific [place] Assessment and Plan 62 yr old male with history of pancreatitis, hypertension, hypothyroidism, presented with slurred speech present for 3 days. He gradually developed left arm and leg weakness as well. MRI scan reveals a pontine stroke. Echo and carotid dopplers are unremarkable. Plan - Will check B-12 and TFTs Continue Aspirin and atorvastatin PT, OT and Speech.
--- NOTE | 2018-03-27 16:35 | Progress Note ---
Assessment and Plan Assessment and plan: Patient is 62 yo man with a history BPH, hypertension, dyslipidemia, gout, peripheral neuropathy, type 2 DM and OA who presented to [facility] ED in slurred speech that started 3 days followed by left side weakness. * MRI brain wo contrast FINDINGS: The ventricles and sulci are normal for age. Focal restricted diffusion involves the right side of the felix, abuts the midline and measures 14 x 9 mm. No other restricted diffusion. There is corresponding T2 hyperintensity in the felix on FLAIR and T2. Moderate bilateral multifocal subcortical and deep white matter hyperintensities on FLAIR and T2. No mass or mass effect. No hemorrhage, edema or extra-axial collection. No chronic microbleeds on the gradient echo sequence. Normal pituitary and optic chiasm. Intact vascular flow voids. Normal sinuses. The o rbits, and soft tissues are normal. Normal calvarium and skull base. IMPRESSION: 1. An acute/subacute nonhemorrhagic right pontine infarct. 2. Moderate bilateral chronic white matter microangiopathy. * MRA head wo contrast: 3 mm saccular aneurysm left MCA without rupture -Acute CVA: start a/c per neurology -3 mm saccular aneurysm left MCA without rupture: I called [place] [facility] for NSY evaluation; I spoke with Lee Ann==>Angélica==> spoke with Neurosurgeon, Dr. Mancilla, who states he doesn't need transfer, needs outpatient follow up at [place], call [phone] -Type 2 DM, uncontrolled hyperglycemia, A1C 13.2: student success counselor on compliance, ssi -Hypertension: cardiac diet -Dyslipidemia: statin History Interval history: Patient was seen and examined. Follow-up on current diagnosis of CVA. Overnight uneventful. Patient denies any chest pain, shortness breath, nausea/vomiting or severe headaches. Imaging, nursing note, chart, labs and old chart reviewed. Discussed with patient. Hospitalist Physical - Physical exam Narrative exam: Gen: WDWN, NAD, Awake, Alert, Orientated HEENT: NCAT, EOMI, PERRL, OP Clear Neck: supple, no adenopathy, no thyromegaly, no JVD CVS/Heart: RRR, normal S1S2, pulses present bilaterally Chest/Lungs: CTA B, Symmetrical chest expansion, good air entry bilaterally GI/Abdomen: soft, NTND, good bowel sounds, no guarding or rebound /Bladder: no suprapubic tenderness, no CVA or paraspinal tenderness Extermity/Skin: no c/c/e, no obvious rash MSK: FROM x3, left side weakness Neuro: CN 2-12 grossly intact, no new focal deficits, dysarthric and left hemiparesis 3/5 msk strength Psych: calm - Constitutional Vitals: Temp Pulse Resp BP Pulse Ox 98.1 F 60 18 140/80 97 03/27/18 04:30 03/27/18 04:30 03/27/18 04:30 03/27/18 04:30 03/27/18 04:30 Results - Labs CBC & Chem 7: 03/27/18 06:13 03/27/18 06:13 Labs: Laboratory Last Values WBC 4.1 K/mm3 (4.5-11.0) L 03/27/18 06:13 RBC 3.91 M/mm3 (3.65-5.03) 03/27/18 06:13 Hgb 11.4 gm/dl (11.8-15.2) L 03/27/18 06:13 Hct 34.2 % (35.5-45.6) L 03/27/18 06:13 MCV 88 fl (84-94) 03/27/18 06:13 MCH 29 pg (28-32) 03/27/18 06:13 MCHC 33 % (32-34) 03/27/18 06:13 RDW 16.0 % (13.2-15.2) H 03/27/18 06:13 Plt Count 170 K/mm3 (140-440) 03/27/18 06:13 Lymph % (Auto) 31.3 % (13.4-35.0) 03/27/18 06:13 [place] % (Auto) 13.1 % (0.0-7.3) H 03/27/18 06:13 Eos % (Auto) 8.6 % (0.0-4.3) H 03/27/18 06:13 Baso % (Auto) 0.6 % (0.0-1.8) 03/27/18 06:13 Lymph # 1.3 K/mm3 (1.2-5.4) 03/27/18 06:13 [place] # 0.5 K/mm3 (0.0-0.8) 03/27/18 06:13 Eos # 0.4 K/mm3 (0.0-0.4) 03/27/18 06:13 Baso # 0.0 K/mm3 (0.0-0.1) 03/27/18 06:13 Seg Neutrophils % 46.4 % (40.0-70.0) 03/27/18 06:13 Seg Neutrophils # 1.9 K/mm3 (1.8-7.7) 03/27/18 06:13 Sodium 139 mmol/L (137-145) 03/27/18 06:13 Potassium 4.0 mmol/L (3.6-5.0) 03/27/18 06:13 Chloride 101.7 mmol/L (98-107) 03/27/18 06:13 Carbon Dioxide 26 mmol/L (22-30) 03/27/18 06:13 Anion Gap 15 mmol/L 03/27/18 06:13 BUN 9 mg/dL (9-20) 03/27/18 06:13 Creatinine 1.0 mg/dL (0.8-1.5) 03/27/18 06:13 Estimated GFR > 60 ml/min 03/27/18 06:13 BUN/Creatinine Ratio 9 % 03/27/18 06:13 Glucose 380 mg/dL (75-100) H 03/27/18 06:13 POC Glucose 355 (70-105) H 03/27/18 07:15 Hemoglobin A1c 13.2 % (4-6) H 03/26/18 13:21 Calcium 8.7 mg/dL (8.4-10.2) 03/27/18 06:13 Total Bilirubin 0.60 mg/dL (0.1-1.2) 03/27/18 06:13 AST 17 units/L (5-40) 03/27/18 06:13 ALT 29 units/L (7-56) 03/27/18 06:13 Alkaline Phosphatase 100 units/L (35-129) 03/27/18 06:13 Total Protein 5.6 g/dL (6.3-8.2) L 03/27/18 06:13 Albumin 3.3 g/dL (3.9-5) L 03/27/18 06:13 Albumin/Globulin Ratio 1.4 % 03/27/18 06:13 Triglycerides 128 mg/dL (2-149) 03/27/18 06:13 Cholesterol 105 mg/dL (50-199) 03/27/18 06:13 LDL Cholesterol Direct 69 mg/dL (50-130) 03/27/18 06:13 HDL Cholesterol 31 mg/dL (40-59) L 03/27/18 06:13 Cholesterol/HDL Ratio 3.38 % 03/27/18 06:13 Lipase 20 units/L (13-60) 03/26/18 13:21 Urine Color Yellow (Yellow) 03/26/18 14:45 Urine Turbidity Clear (Clear) 03/26/18 14:45 Urine pH 5.0 (5.0-7.0) 03/26/18 14:45 Ur Specific [place] 1.033 (1.003-1.030) H 03/26/18 14:45 Urine Protein <15 mg/dl mg/dL (Negative) 03/26/18 14:45 Urine Glucose (UA) >=500 mg/dL (Negative) 03/26/18 14:45 Urine Ketones Neg mg/dL (Negative) 03/26/18 14:45 Urine Blood Neg (Negative) 03/26/18 14:45 Urine Nitrite Neg (Negative) 03/26/18 14:45 Urine Bilirubin Neg (Negative) 03/26/18 14:45 Urine Urobilinogen 2.0 mg/dL (<2.0) 03/26/18 14:45 Ur Leukocyte Esterase Tr (Negative) 03/26/18 14:45 Urine WBC (Auto) < 1.0 /HPF (0.0-6.0) 03/26/18 14:45 Urine RBC (Auto) 1.0 /HPF (0.0-6.0) 03/26/18 14:45 U Epithel Cells (Auto) < 1.0 /HPF (0-13.0) 03/26/18 14:45
[2018-03-27 20:41] LABS: Free T4 (Free Thyroxine) 1.25 ng/dL (0.76-1.46)
[2018-03-27] MEDS: LOVENOX SUB-Q SCH (21:08)
[2018-03-28] MEDS: SYNTHROID PO SCH ×2 (05:47→05:48)
[2018-03-28] MEDS: LASIX PO SCH (05:48)
[2018-03-28] MEDS: PLAVIX PO SCH (10:24)
[2018-03-28] MEDS: CATAPRES PO SCH ×2 (10:24→21:00)
[2018-03-28] MEDS: ZESTRIL PO SCH (10:24)
[2018-03-28] MEDS: LYRICA PO SCH ×4 (10:24→22:21)
[2018-03-28] MEDS: ASPIRIN PO SCH (10:24)
[2018-03-28] MEDS: NORVASC PO SCH (10:25)
[2018-03-28] MEDS: FLOMAX PO SCH (10:25)
[2018-03-28] MEDS: HumaLOG SUB-Q SCH ×4 (10:25→22:22)
[2018-03-28] MEDS: ZYLOPRIM PO SCH (10:25)
[2018-03-28] MEDS: SODIUM CHLORIDE FLUSH SYRINGE 10 ML IV SCH ×2 (10:26→22:23)
--- NOTE | 2018-03-28 15:14 | Progress Note ---
Assessment and Plan Assessment and plan: Patient is 62 yo man with a history BPH, hypertension, dyslipidemia, gout, peripheral neuropathy, type 2 DM and OA who presented to [facility] ED in slurred speech that started 3 days followed by left side weakness. * MRI brain wo contrast FINDINGS: The ventricles and sulci are normal for age. Focal restricted diffusion involves the right side of the felix, abuts the midline and measures 14 x 9 mm. No other restricted diffusion. There is corresponding T2 hyperintensity in the felix on FLAIR and T2. Moderate bilateral multifocal subcortical and deep white matter hyperintensities on FLAIR and T2. No mass or mass effect. No hemorrhage, edema or extra-axial collection. No chronic microbleeds on the gradient echo sequence. Normal pituitary and optic chiasm. Intact vascular flow voids. Normal sinuses. The o rbits, and soft tissues are normal. Normal calvarium and skull base. IMPRESSION: 1. An acute/subacute nonhemorrhagic right pontine infarct. 2. Moderate bilateral chronic white matter microangiopathy. * MRA head wo contrast: 3 mm saccular aneurysm left MCA without rupture -Acute CVA: start a/c per neurology -3 mm saccular aneurysm left MCA without rupture: I called [place] [facility] for NSY evaluation; I spoke with Lee Ann==>Angélica==> spoke with Neurosurgeon, Dr. Mancilla, who states he doesn't need transfer, needs outpatient follow up at [place], call [phone] -Type 2 DM, uncontrolled hyperglycemia, A1C 13.2: job placement counselor on compliance, ssi -Hypertension: cardiac diet -Dyslipidemia: statin Patient needs rehab but he doesn't have insurance except for [facility] benefits. Will discharge with pt/ot and he can make an appointment with his [facility] doctor and give them my recommendation. History Interval history: Patient was seen and examined. Follow-up on current diagnosis of CVA. Overnight uneventful. Patient denies any chest pain, shortness breath, nausea/vomiting or severe headaches. Imaging, nursing note, chart, labs and old chart reviewed. Discussed with patient. Hospitalist Physical - Physical exam Narrative exam: Gen: WDWN, NAD, Awake, Alert, Orientated HEENT: NCAT, EOMI, PERRL, OP Clear Neck: supple, no adenopathy, no thyromegaly, no JVD CVS/Heart: RRR, normal S1S2, pulses present bilaterally Chest/Lungs: CTA B, Symmetrical chest expansion, good air entry bilaterally GI/Abdomen: soft, NTND, good bowel sounds, no guarding or rebound /Bladder: no suprapubic tenderness, no CVA or paraspinal tenderness Extermity/Skin: no c/c/e, no obvious rash MSK: FROM x3, left side weakness Neuro: CN 2-12 grossly intact, no new focal deficits, dysarthric and left hemiparesis 3/5 msk strength Psych: calm - Constitutional Vitals: Temp Pulse Resp BP Pulse Ox 97.6 F 60 12 145/83 98 03/28/18 08:10 03/28/18 08:10 03/28/18 08:10 03/28/18 08:10 03/28/18 08:10 Results - Labs CBC & Chem 7: 03/27/18 06:13 03/27/18 06:13 Labs: Laboratory Last Values WBC 4.1 K/mm3 (4.5-11.0) L 03/27/18 06:13 RBC 3.91 M/mm3 (3.65-5.03) 03/27/18 06:13 Hgb 11.4 gm/dl (11.8-15.2) L 03/27/18 06:13 Hct 34.2 % (35.5-45.6) L 03/27/18 06:13 MCV 88 fl (84-94) 03/27/18 06:13 MCH 29 pg (28-32) 03/27/18 06:13 MCHC 33 % (32-34) 03/27/18 06:13 RDW 16.0 % (13.2-15.2) H 03/27/18 06:13 Plt Count 170 K/mm3 (140-440) 03/27/18 06:13 Lymph % (Auto) 31.3 % (13.4-35.0) 03/27/18 06:13 [place] % (Auto) 13.1 % (0.0-7.3) H 03/27/18 06:13 Eos % (Auto) 8.6 % (0.0-4.3) H 03/27/18 06:13 Baso % (Auto) 0.6 % (0.0-1.8) 03/27/18 06:13 Lymph # 1.3 K/mm3 (1.2-5.4) 03/27/18 06:13 [place] # 0.5 K/mm3 (0.0-0.8) 03/27/18 06:13 Eos # 0.4 K/mm3 (0.0-0.4) 03/27/18 06:13 Baso # 0.0 K/mm3 (0.0-0.1) 03/27/18 06:13 Seg Neutrophils % 46.4 % (40.0-70.0) 03/27/18 06:13 Seg Neutrophils # 1.9 K/mm3 (1.8-7.7) 03/27/18 06:13 Sodium 139 mmol/L (137-145) 03/27/18 06:13 Potassium 4.0 mmol/L (3.6-5.0) 03/27/18 06:13 Chloride 101.7 mmol/L (98-107) 03/27/18 06:13 Carbon Dioxide 26 mmol/L (22-30) 03/27/18 06:13 Anion Gap 15 mmol/L 03/27/18 06:13 BUN 9 mg/dL (9-20) 03/27/18 06:13 Creatinine 1.0 mg/dL (0.8-1.5) 03/27/18 06:13 Estimated GFR > 60 ml/min 03/27/18 06:13 BUN/Creatinine Ratio 9 % 03/27/18 06:13 Glucose 380 mg/dL (75-100) H 03/27/18 06:13 POC Glucose 355 (70-105) H 03/27/18 07:15 Hemoglobin A1c 13.2 % (4-6) H 03/26/18 13:21 Calcium 8.7 mg/dL (8.4-10.2) 03/27/18 06:13 Total Bilirubin 0.60 mg/dL (0.1-1.2) 03/27/18 06:13 AST 17 units/L (5-40) 03/27/18 06:13 ALT 29 units/L (7-56) 03/27/18 06:13 Alkaline Phosphatase 100 units/L (35-129) 03/27/18 06:13 Total Protein 5.6 g/dL (6.3-8.2) L 03/27/18 06:13 Albumin 3.3 g/dL (3.9-5) L 03/27/18 06:13 Albumin/Globulin Ratio 1.4 % 03/27/18 06:13 Triglycerides 128 mg/dL (2-149) 03/27/18 06:13 Cholesterol 105 mg/dL (50-199) 03/27/18 06:13 LDL Cholesterol Direct 69 mg/dL (50-130) 03/27/18 06:13 HDL Cholesterol 31 mg/dL (40-59) L 03/27/18 06:13 Cholesterol/HDL Ratio 3.38 % 03/27/18 06:13 Lipase 20 units/L (13-60) 03/26/18 13:21 Vitamin B12 1029 pg/mL (211-911) H 03/27/18 19:25 TSH 3.100 mlU/mL (0.270-4.200) 03/27/18 19:25 Free T4 1.25 ng/dL (0.76-1.46) 03/27/18 19:25 Urine Color Yellow (Yellow) 03/26/18 14:45 Urine Turbidity Clear (Clear) 03/26/18 14:45 Urine pH 5.0 (5.0-7.0) 03/26/18 14:45 Ur Specific [place] 1.033 (1.003-1.030) H 03/26/18 14:45 Urine Protein <15 mg/dl mg/dL (Negative) 03/26/18 14:45 Urine Glucose (UA) >=500 mg/dL (Negative) 03/26/18 14:45 Urine Ketones Neg mg/dL (Negative) 03/26/18 14:45 Urine Blood Neg (Negative) 03/26/18 14:45 Urine Nitrite Neg (Negative) 03/26/18 14:45 Urine Bilirubin Neg (Negative) 03/26/18 14:45 Urine Urobilinogen 2.0 mg/dL (<2.0) 03/26/18 14:45 Ur Leukocyte Esterase Tr (Negative) 03/26/18 14:45 Urine WBC (Auto) < 1.0 /HPF (0.0-6.0) 03/26/18 14:45 Urine RBC (Auto) 1.0 /HPF (0.0-6.0) 03/26/18 14:45 U Epithel Cells (Auto) < 1.0 /HPF (0-13.0) 03/26/18 14:45
--- NOTE | 2018-03-28 15:19 | Discharge Summary ---
Providers - Providers Date of Admission: 03/26/18 14:36 Date of discharge: 03/28/18 Attending physician: CORY HAWKINS 03/26/18 20:03 Consult to Physician [CONS] Routine Comment: Consulting Provider: BINA DONOHUE Physician Instructions: Reason For Exam: cva 03/26/18 20:06 Occupational Therapy Evaluate and Treat [CONS] Routine Comment: Reason For Exam: Neuro deficits Physical Therapy Evaluation and Treat [CONS] Routine Comment: Reason For Exam: Neuro deficits Primary care physician: MARY JO GEORGE Hospitalization Condition: Stable Hospital course: Patient is 62 yo man with a history BPH, hypertension, dyslipidemia, gout, peripheral neuropathy, type 2 DM and OA who presented to [facility] ED in slurred speech that started 3 days followed by left side weakness. * MRI brain wo contrast FINDINGS: The ventricles and sulci are normal for age. Focal restricted diffusion involves the right side of the felix, abuts the midline and measures 14 x 9 mm. No other restricted diffusion. There is corresponding T2 hyperintensity in the felix on FLAIR and T2. Moderate bilateral multifocal subcortical and deep white matter hyperintensities on FLAIR and T2. No mass or mass effect. No hemorrhage, edema or extra-axial collection. No chronic microbleeds on the gradient echo sequence. Normal pituitary and optic chiasm. Intact vascular flow voids. Normal sinuses. The orbits, and soft tissues are normal. Normal calvarium and skull base. IMPRESSION: 1. An acute/subacute nonhemorrhagic right pontine infarct. 2. Moderate bilateral chronic white matter microangiopathy. * MRA head wo contrast: 3 mm saccular aneurysm left MCA without rupture -Acute CVA: a/c per neurology==> antiplt, the a/c maybe too risky with the Aneurysm. -3 mm saccular aneurysm left MCA without rupture: I called [place] [facility] for NSY evaluation; I spoke with Lee Ann==>Angélica==> spoke with Neurosurgeon, Dr. Mancilla, who states he doesn't need transfer, needs outpatient follow up at [place], call [phone] -Type 2 DM, uncontrolled hyperglycemia, A1C 13.2: career guidance counselor on compliance, ssi -Hypertension: cardiac diet -Dyslipidemia: statin Patient needs rehab but he doesn't have insurance except for [facility] benefits. Will discharge with pt/ot and he can make an appointment with his [facility] doctor and give them my recommendation. Disposition: [id number] HOME UNDER [facility] Time spent for discharge: 36 minutes Core Measure Documentation - Palliative Care Palliative Care/ Comfort Measures: Not Applicable - Core Measures Any of the following diagnoses?: stroke - VTE Discharge Requirements Deep Vein Thrombosis/Pulmonary Embolism Present on Admission: No Has pt received <5 days of overlap therapy or INR<2.0: No Anticoagulant overlap therapy prescribed at discharge: No Contraindication No Overlap Therapy order at DC: Not Indicated - Stroke Discharge Requirements Statin for LDL = or >70 mg/dl on DC: Yes Anticoag for atrial fib/atrial flutter: Not Applicable Reason for no anticoag for AF/F on DC: Not Indicated Antithrombotic for ischemic stroke: Yes Exam - Physical Exam Narrative exam: Gen: WDWN, NAD, Awake, Alert, Orientated HEENT: NCAT, EOMI, PERRL, OP Clear Neck: supple, no adenopathy, no thyromegaly, no JVD CVS/Heart: RRR, normal S1S2, pulses present bilaterally Chest/Lungs: CTA B, Symmetrical chest expansion, good air entry bilaterally GI/Abdomen: soft, NTND, good bowel sounds, no guarding or rebound /Bladder: no suprapubic tenderness, no CVA or paraspinal tenderness Extermity/Skin: no c/c/e, no obvious rash MSK: FROM x3, left side weakness Neuro: CN 2-12 grossly intact, no new focal deficits, dysarthric and left hemiparesis 3/5 msk strength Psych: calm - Constitutional Vitals: Temp Pulse Resp BP Pulse Ox 97.6 F 60 12 145/83 98 03/28/18 08:10 03/28/18 08:10 03/28/18 08:10 03/28/18 08:10 03/28/18 08:10 Plan Activity: up only with assistance, fall precautions, other (no strenous activity until cleared by [place] doctor) Diet: low salt Special Instructions: physical therapy, occupational therapy, home health RN Follow up with: [place], Primary doctor LUCY [Other] - 3 Days Prescriptions: AtorvaSTATin [Lipitor] 40 mg PO QHS #30 tablet Aspirin [Aspirin TAB] 325 mg PO QDAY #30 tablet Clopidogrel [Plavix] 75 mg PO QDAY #30 tablet Furosemide [Lasix TAB] 20 mg PO QDAY #30 tablet
--- NOTE | 2018-03-28 16:46 | Progress Note ---
Assessment and Plan 62 yr old male with history of hypertension, hypothyroidism, presented with slurred speech present for 3 days. He gradually developed left arm and leg weakness as well. MRI scan reveals a pontine stroke. Echo and carotid dopplers are unremarkable. Plan - Continue rehab. efforts Continue ASA, Clopidogrel and atorvastatin Subjective Date of service: 03/28/18 Principal diagnosis: pontine stroke Interval history: 62 yr old left handed male with hx of hypertension, diabetes, hypothyroidism, presented to ER on 03/26/18 with hx of slurred speech for 3 days. He then developed left arm and leg weakness. He has been seen by PT, OT and speech therapy. He is swallowing well and tolerating his diet. He feels his strength is stable in comparison to yesterday. Objective - Exam Narrative Exam: Neuurological exam - Speech very dysarthric. Language intact. tool design engineer - EOMs intact, no nystagmus. V-1 thru V-3 intact bilaterally, face - left droop. tongue midline, hearing intact. Motor - 5/5 on the right. Left upper extremity - deltoids - 3-/5, biceps - 2/5, triceps 5-/5, wrist extensors 2/5, finger extensors - 2/5 employee relations specialist - 2+/5. LLE - iliopsoas - 3-/5, Quads - 4+/5, foot dorsiflexors - 4/5, plantar flexors - 4/5 Reflexes - +1 throughout. Sensory - intact to touch and sharp bilaterally. Cerebellar - able to perform [place], FFM, and FTN well with right. . Can perform them with lt. hand with clumsiness and weakness, - Vital Sign Vital Signs - 12hr 03/28/18 08:10 Temperature 97.6 F Pulse Rate 60 Respiratory 12 Rate Blood Pressure 145/83 O2 Sat by Pulse 98 Oximetry - Laboratory Findings CBC and BMP: 03/27/18 06:13 03/27/18 06:13 Abnormal Lab Findings: Abnormal Labs 03/26/18 03/26/18 03/26/18 13:21 13:21 13:21 WBC Hgb Hct RDW 16.1 H [place] % (Auto) 15.5 H Eos % (Auto) 6.4 H Sodium 136 L Chloride 97.4 L Glucose 444 H POC Glucose Hemoglobin A1c 13.2 H Total Protein Albumin 3.7 L HDL Cholesterol Vitamin B12 Ur Specific [place] 03/26/18 03/26/18 03/27/18 14:45 21:18 06:13 WBC 4.1 L Hgb 11.4 L Hct 34.2 L RDW 16.0 H [place] % (Auto) 13.1 H Eos % (Auto) 8.6 H Sodium Chloride Glucose POC Glucose 328 H Hemoglobin A1c Total Protein Albumin HDL Cholesterol Vitamin B12 Ur Specific [place] 1.033 H 03/27/18 03/27/18 03/27/18 06:13 07:15 19:25 WBC Hgb Hct RDW [place] % (Auto) Eos % (Auto) Sodium Chloride Glucose 380 H POC Glucose 355 H Hemoglobin A1c Total Protein 5.6 L Albumin 3.3 L HDL Cholesterol 31 L Vitamin B12 1029 H Ur Specific [place]
[2018-03-28] MEDS ORDERED: DULCOLAX PR ONE ×2 (18:59→23:15)
[2018-03-28] MEDS: LOVENOX SUB-Q SCH (22:22)
[2018-03-28] MEDS: PERCOCET 5/325 PO PRN (22:25)
[2018-03-29] MEDS: DILAUDID IV PRN (01:17)
[2018-03-29] MEDS: SYNTHROID PO SCH ×2 (06:33)
[2018-03-29] MEDS: LASIX PO SCH (06:33)
[2018-03-29 06:46] LABS: Hematocrit 35.5 % (35.5-45.6); Hemoglobin 11.9 gm/dl (11.8-15.2); Mean Corpuscular HGB Conc 34 % (32-34); Mean Corpuscular Volume 85 fl (84-94); Platelet Count 166 K/mm3 (140-440); Red Blood Count 4.15 M/mm3 (3.65-5.03); Red Cell Distribution Width 15.6 % (13.2-15.2)
[2018-03-29 07:11] LABS: BUN/Creatinine Ratio 11; Blood Urea Nitrogen 12 mg/dL (9-20); Calcium 8.9 mg/dL (8.4-10.2); Hemolysis Index 22
[2018-03-29] MEDS: HumaLOG SUB-Q SCH ×4 (09:13→23:36)
[2018-03-29] MEDS: PERCOCET 5/325 PO PRN (10:21)
[2018-03-29] MEDS: ASPIRIN PO SCH (10:22)
[2018-03-29] MEDS: NORVASC PO SCH (10:22)
[2018-03-29] MEDS: ZESTRIL PO SCH (10:22)
[2018-03-29] MEDS: FLOMAX PO SCH (10:23)
[2018-03-29] MEDS: LYRICA PO SCH ×4 (10:23→22:15)
[2018-03-29] MEDS: ZYLOPRIM PO SCH (10:23)
[2018-03-29] MEDS: PLAVIX PO SCH (10:24)
[2018-03-29] MEDS: CATAPRES PO SCH ×2 (10:32→23:36)
--- NOTE | 2018-03-29 10:58 | Ultrasound Report ---
ULTRASOUND ABDOMEN COMPLETE: TECHNIQUE: Transabdominal ultrasound with color Doppler interrogation. HISTORY: abdominal pain, constipation. COMPARISON: none. FINDINGS: LIVER: The liver parenchyma is echogenic consistent with mild diffuse fatty infiltration. No focal mass or surface nodularity. BILIARY SYSTEM: Normal. PANCREAS: Normal. SPLEEN: Normal. KIDNEYS: Normal. AORTA/IVC: Normal. ASCITES: None. IMPRESSION: Fatty change in liver. Otherwise, unremarkable abdominal sonogram.
--- NOTE | 2018-03-29 14:09 | Progress Note ---
Assessment and Plan Assessment and plan: Patient is 62 yo man with a history BPH, hypertension, dyslipidemia, gout, peripheral neuropathy, type 2 DM and OA who presented to [facility] ED in slurred speech that started 3 days followed by left side weakness. * MRI brain wo contrast FINDINGS: The ventricles and sulci are normal for age. Focal restricted diffusion involves the right side of the felix, abuts the midline and measures 14 x 9 mm. No other restricted diffusion. There is corresponding T2 hyperintensity in the felix on FLAIR and T2. Moderate bilateral multifocal subcortical and deep white matter hyperintensities on FLAIR and T2. No mass or mass effect. No hemorrhage, edema or extra-axial collection. No chronic microbleeds on the gradient echo sequence. Normal pituitary and optic chiasm. Intact vascular flow voids. Normal sinuses. The o rbits, and soft tissues are normal. Normal calvarium and skull base. IMPRESSION: 1. An acute/subacute nonhemorrhagic right pontine infarct. 2. Moderate bilateral chronic white matter microangiopathy. 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 Mancilla, who states he doesn't need transfer, needs outpatient follow up at [place], call [phone] -Type 2 DM, uncontrolled hyperglycemia, A1C 13.2: agency legal counsel on compliance, ssi -Constipation: dulcolax supp. -Hypertension: cardiac diet -Dyslipidemia: statin Discharge planning issues: Patient needs rehab but he doesn't have insurance except for [facility] benefits. I called [place] [phone] to see if they can get him rehab, if not then I would discharge and [facility] can [facility] not walking, too unsteady per PT, d/w PT, he needs inpatient rehab, I called the [place] Utilization management for transfer, dept [phone], no one answered. I called twice. I called and spoke with Crista again and she put me through to the claims administrator, Augusto. I spoke with Augusto. Patient is in the system. He can be treated outside [place] and presents the bill for "Fee basis" and Utilization Review gone for the day (8am-4pm). [place] doesn't have inpatient but they send their stroke patient to [facility]. d/w , she is concerned abd pains and n/v. Will get abd u/s and dulcolax suppository History Interval history: Patient was seen and examined. Follow-up on current diagnosis of CVA. Overnight uneventful. Patient denies any chest pain, shortness breath, nausea/vomiting or severe headaches. Imaging, nursing note, chart, labs and old chart reviewed. Discussed with patient. Hospitalist Physical - Physical exam Narrative exam: Gen: WDWN, NAD, Awake, Alert, Orientated HEENT: NCAT, EOMI, PERRL, OP Clear Neck: supple, no adenopathy, no thyromegaly, no JVD CVS/Heart: RRR, normal S1S2, pulses present bilaterally Chest/Lungs: CTA B, Symmetrical chest expansion, good air entry bilaterally GI/Abdomen: soft, NTND, good bowel sounds, no guarding or rebound /Bladder: no suprapubic tenderness, no CVA or paraspinal tenderness Extermity/Skin: no c/c/e, no obvious rash MSK: FROM x3, left side weakness Neuro: CN 2-12 grossly intact, no new focal deficits, dysarthric and left hemiparesis 3/5 msk strength Psych: calm - Constitutional Vitals: Temp Pulse Resp BP Pulse Ox 98.0 F 72 20 147/87 96 03/29/18 05:26 03/29/18 11:51 03/29/18 10:21 03/29/18 11:51 03/29/18 11:51 Results - Labs CBC & Chem 7: 03/29/18 06:33 03/29/18 06:33 Labs: Laboratory Last Values WBC 5.7 K/mm3 (4.5-11.0) 03/29/18 06:33 RBC 4.15 M/mm3 (3.65-5.03) 03/29/18 06:33 Hgb 11.9 gm/dl (11.8-15.2) 03/29/18 06:33 Hct 35.5 % (35.5-45.6) 03/29/18 06:33 MCV 85 fl (84-94) 03/29/18 06:33 MCH 29 pg (28-32) 03/29/18 06:33 MCHC 34 % (32-34) 03/29/18 06:33 RDW 15.6 % (13.2-15.2) H 03/29/18 06:33 Plt Count 166 K/mm3 (140-440) 03/29/18 06:33 Lymph % (Auto) 31.3 % (13.4-35.0) 03/27/18 06:13 [place] % (Auto) 13.1 % (0.0-7.3) H 03/27/18 06:13 Eos % (Auto) 8.6 % (0.0-4.3) H 03/27/18 06:13 Baso % (Auto) 0.6 % (0.0-1.8) 03/27/18 06:13 Lymph # 1.3 K/mm3 (1.2-5.4) 03/27/18 06:13 [place] # 0.5 K/mm3 (0.0-0.8) 03/27/18 06:13 Eos # 0.4 K/mm3 (0.0-0.4) 03/27/18 06:13 Baso # 0.0 K/mm3 (0.0-0.1) 03/27/18 06:13 Seg Neutrophils % 46.4 % (40.0-70.0) 03/27/18 06:13 Seg Neutrophils # 1.9 K/mm3 (1.8-7.7) 03/27/18 06:13 Sodium 139 mmol/L (137-145) 03/29/18 06:33 Potassium 3.7 mmol/L (3.6-5.0) 03/29/18 06:33 Chloride 101.5 mmol/L (98-107) 03/29/18 06:33 Carbon Dioxide 24 mmol/L (22-30) 03/29/18 06:33 Anion Gap 17 mmol/L 03/29/18 06:33 BUN 12 mg/dL (9-20) 03/29/18 06:33 Creatinine 1.1 mg/dL (0.8-1.5) 03/29/18 06:33 Estimated GFR > 60 ml/min 03/29/18 06:33 BUN/Creatinine Ratio 11 % 03/29/18 06:33 Glucose 251 mg/dL (75-100) H 03/29/18 06:33 POC Glucose 329 (70-105) H 03/29/18 11:54 Hemoglobin A1c 13.2 % (4-6) H 03/26/18 13:21 Calcium 8.9 mg/dL (8.4-10.2) 03/29/18 06:33 Total Bilirubin 0.60 mg/dL (0.1-1.2) 03/27/18 06:13 AST 17 units/L (5-40) 03/27/18 06:13 ALT 29 units/L (7-56) 03/27/18 06:13 Alkaline Phosphatase 100 units/L (35-129) 03/27/18 06:13 Total Protein 5.6 g/dL (6.3-8.2) L 03/27/18 06:13 Albumin 3.3 g/dL (3.9-5) L 03/27/18 06:13 Albumin/Globulin Ratio 1.4 % 03/27/18 06:13 Triglycerides 128 mg/dL (2-149) 03/27/18 06:13 Cholesterol 105 mg/dL (50-199) 03/27/18 06:13 LDL Cholesterol Direct 69 mg/dL (50-130) 03/27/18 06:13 HDL Cholesterol 31 mg/dL (40-59) L 03/27/18 06:13 Cholesterol/HDL Ratio 3.38 % 03/27/18 06:13 Lipase 20 units/L (13-60) 03/26/18 13:21 Vitamin B12 1029 pg/mL (211-911) H 03/27/18 19:25 TSH 3.100 mlU/mL (0.270-4.200) 03/27/18 19:25 Free T4 1.25 ng/dL (0.76-1.46) 03/27/18 19:25 Urine Color Yellow (Yellow) 03/26/18 14:45 Urine Turbidity Clear (Clear) 03/26/18 14:45 Urine pH 5.0 (5.0-7.0) 03/26/18 14:45 Ur Specific [place] 1.033 (1.003-1.030) H 03/26/18 14:45 Urine Protein <15 mg/dl mg/dL (Negative) 03/26/18 14:45 Urine Glucose (UA) >=500 mg/dL (Negative) 03/26/18 14:45 Urine Ketones Neg mg/dL (Negative) 03/26/18 14:45 Urine Blood Neg (Negative) 03/26/18 14:45 Urine Nitrite Neg (Negative) 03/26/18 14:45 Urine Bilirubin Neg (Negative) 03/26/18 14:45 Urine Urobilinogen 2.0 mg/dL (<2.0) 03/26/18 14:45 Ur Leukocyte Esterase Tr (Negative) 03/26/18 14:45 Urine WBC (Auto) < 1.0 /HPF (0.0-6.0) 03/26/18 14:45 Urine RBC (Auto) 1.0 /HPF (0.0-6.0) 03/26/18 14:45 U Epithel Cells (Auto) < 1.0 /HPF (0-13.0) 03/26/18 14:45
[2018-03-29] MEDS: LOVENOX SUB-Q SCH (22:15)
[2018-03-29] MEDS: SODIUM CHLORIDE FLUSH SYRINGE 10 ML IV SCH ×2 (22:16→22:21)
[2018-03-30] MEDS: DILAUDID IV PRN ×3 (01:54→20:22)
[2018-03-30] MEDS: ZOFRAN IV PRN ×2 (01:55→20:24)
[2018-03-30] MEDS: PERCOCET 5/325 PO PRN ×2 (03:10→21:44)
[2018-03-30] MEDS: SYNTHROID PO SCH ×2 (05:51)
[2018-03-30] MEDS: LASIX PO SCH (05:51)
[2018-03-30] MEDS: HumaLOG SUB-Q SCH ×4 (08:49→21:45)
[2018-03-30] MEDS: CATAPRES PO SCH ×2 (10:40→20:21)
[2018-03-30] MEDS: LYRICA PO SCH ×4 (10:45→21:44)
[2018-03-30] MEDS: FLOMAX PO SCH (10:45)
[2018-03-30] MEDS: ZYLOPRIM PO SCH (10:45)
[2018-03-30] MEDS: PLAVIX PO SCH (10:45)
[2018-03-30] MEDS: ASPIRIN PO SCH (10:45)
[2018-03-30] MEDS: NORVASC PO SCH (10:46)
[2018-03-30] MEDS: ZESTRIL PO SCH (10:47)
[2018-03-30] MEDS: SODIUM CHLORIDE FLUSH SYRINGE 10 ML IV SCH ×2 (11:53→21:45)
--- NOTE | 2018-03-30 16:53 | Progress Note ---
Assessment and Plan Assessment and plan: Patient is 62 yo man with a history BPH, hypertension, dyslipidemia, gout, peripheral neuropathy, type 2 DM and OA who presented to [facility] ED in slurred speech that started 3 days followed by left side weakness. * MRI brain wo contrast FINDINGS: The ventricles and sulci are normal for age. Focal restricted diffusion involves the right side of the felix, abuts the midline and measures 14 x 9 mm. No other restricted diffusion. There is corresponding T2 hyperintensity in the felix on FLAIR and T2. Moderate bilateral multifocal subcortical and deep white matter hyperintensities on FLAIR and T2. No mass or mass effect. No hemorrhage, edema or extra-axial collection. No chronic microbleeds on the gradient echo sequence. Normal pituitary and optic chiasm. Intact vascular flow voids. Normal sinuses. The o rbits, and soft tissues are normal. Normal calvarium and skull base. IMPRESSION: 1. An acute/subacute nonhemorrhagic right pontine infarct. 2. Moderate bilateral chronic white matter microangiopathy. 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 Mancilla, who states he doesn't need transfer, needs outpatient follow up at [place], call [phone] -Type 2 DM, uncontrolled hyperglycemia, A1C 13.2: probation counselor on compliance, increased 70/30 to 55units bid and SSI -Constipation: dulcolax supp. -Hypertension: cardiac diet -Dyslipidemia: statin Discharge planning issues: Patient needs rehab but he doesn't have insurance except for [facility] benefits. I called [place] [phone] to see if they can get him rehab, if not then I would discharge and he can [facility] with [facility] not walking, too unsteady per PT, d/w PT, he needs inpatient rehab, I called the [place] Utilization management for transfer, dept [phone], no one answered. I called twice. I called and spoke with Crista again and she put me through to the historic site administrator, Augusto. I spoke with Augusto. Patient is in the system. He can be treated outside [place] and presents the bill for "Fee basis" and Utilization Review gone for the day (8am-4pm). [place] doesn't have inpatient but they send their stroke patient to [facility]. d/w , she is concerned abd pains and n/v. s/p abd u/s (fatty liver otherwise unremarkable) and dulcolax suppository given spoke with near nursing station waiting on wheelchair to go home, he [facility] on [facility]. History Interval history: Patient was seen and examined. Follow-up on current diagnosis of CVA. Overnight uneventful. Patient denies any chest pain, shortness breath, nausea/vomiting or severe headaches. Imaging, nursing note, chart, labs and old chart reviewed. Discussed with patient. Hospitalist Physical - Physical exam Narrative exam: Gen: WDWN, NAD, Awake, Alert, Orientated HEENT: NCAT, EOMI, PERRL, OP Clear Neck: supple, no adenopathy, no thyromegaly, no JVD CVS/Heart: RRR, normal S1S2, pulses present bilaterally Chest/Lungs: CTA B, Symmetrical chest expansion, good air entry bilaterally GI/Abdomen: soft, NTND, good bowel sounds, no guarding or rebound /Bladder: no suprapubic tenderness, no CVA or paraspinal tenderness Extermity/Skin: no c/c/e, no obvious rash MSK: FROM x3, left side weakness Neuro: CN 2-12 grossly intact, no new focal deficits, dysarthric and left hemiparesis 3/5 msk strength Psych: calm - Constitutional Vitals: Temp Pulse Resp BP Pulse Ox 98.1 F 78 20 115/62 95 03/30/18 09:22 03/30/18 09:22 03/30/18 11:53 03/30/18 10:47 03/30/18 09:22 Results - Labs CBC & Chem 7: 03/29/18 06:33 03/29/18 06:33 Labs: Laboratory Last Values WBC 5.7 K/mm3 (4.5-11.0) 03/29/18 06:33 RBC 4.15 M/mm3 (3.65-5.03) 03/29/18 06:33 Hgb 11.9 gm/dl (11.8-15.2) 03/29/18 06:33 Hct 35.5 % (35.5-45.6) 03/29/18 06:33 MCV 85 fl (84-94) 03/29/18 06:33 MCH 29 pg (28-32) 03/29/18 06:33 MCHC 34 % (32-34) 03/29/18 06:33 RDW 15.6 % (13.2-15.2) H 03/29/18 06:33 Plt Count 166 K/mm3 (140-440) 03/29/18 06:33 Lymph % (Auto) 31.3 % (13.4-35.0) 03/27/18 06:13 [place] % (Auto) 13.1 % (0.0-7.3) H 03/27/18 06:13 Eos % (Auto) 8.6 % (0.0-4.3) H 03/27/18 06:13 Baso % (Auto) 0.6 % (0.0-1.8) 03/27/18 06:13 Lymph # 1.3 K/mm3 (1.2-5.4) 03/27/18 06:13 [place] # 0.5 K/mm3 (0.0-0.8) 03/27/18 06:13 Eos # 0.4 K/mm3 (0.0-0.4) 03/27/18 06:13 Baso # 0.0 K/mm3 (0.0-0.1) 03/27/18 06:13 Seg Neutrophils % 46.4 % (40.0-70.0) 03/27/18 06:13 Seg Neutrophils # 1.9 K/mm3 (1.8-7.7) 03/27/18 06:13 Sodium 139 mmol/L (137-145) 03/29/18 06:33 Potassium 3.7 mmol/L (3.6-5.0) 03/29/18 06:33 Chloride 101.5 mmol/L (98-107) 03/29/18 06:33 Carbon Dioxide 24 mmol/L (22-30) 03/29/18 06:33 Anion Gap 17 mmol/L 03/29/18 06:33 BUN 12 mg/dL (9-20) 03/29/18 06:33 Creatinine 1.1 mg/dL (0.8-1.5) 03/29/18 06:33 Estimated GFR > 60 ml/min 03/29/18 06:33 BUN/Creatinine Ratio 11 % 03/29/18 06:33 Glucose 251 mg/dL (75-100) H 03/29/18 06:33 POC Glucose 222 (70-105) H 03/30/18 11:58 Hemoglobin A1c 13.2 % (4-6) H 03/26/18 13:21 Calcium 8.9 mg/dL (8.4-10.2) 03/29/18 06:33 Total Bilirubin 0.60 mg/dL (0.1-1.2) 03/27/18 06:13 AST 17 units/L (5-40) 03/27/18 06:13 ALT 29 units/L (7-56) 03/27/18 06:13 Alkaline Phosphatase 100 units/L (35-129) 03/27/18 06:13 Total Protein 5.6 g/dL (6.3-8.2) L 03/27/18 06:13 Albumin 3.3 g/dL (3.9-5) L 03/27/18 06:13 Albumin/Globulin Ratio 1.4 % 03/27/18 06:13 Triglycerides 128 mg/dL (2-149) 03/27/18 06:13 Cholesterol 105 mg/dL (50-199) 03/27/18 06:13 LDL Cholesterol Direct 69 mg/dL (50-130) 03/27/18 06:13 HDL Cholesterol 31 mg/dL (40-59) L 03/27/18 06:13 Cholesterol/HDL Ratio 3.38 % 03/27/18 06:13 Lipase 20 units/L (13-60) 03/26/18 13:21 Vitamin B12 1029 pg/mL (211-911) H 03/27/18 19:25 TSH 3.100 mlU/mL (0.270-4.200) 03/27/18 19:25 Free T4 1.25 ng/dL (0.76-1.46) 03/27/18 19:25 Urine Color Yellow (Yellow) 03/26/18 14:45 Urine Turbidity Clear (Clear) 03/26/18 14:45 Urine pH 5.0 (5.0-7.0) 03/26/18 14:45 Ur Specific [place] 1.033 (1.003-1.030) H 03/26/18 14:45 Urine Protein <15 mg/dl mg/dL (Negative) 03/26/18 14:45 Urine Glucose (UA) >=500 mg/dL (Negative) 03/26/18 14:45 Urine Ketones Neg mg/dL (Negative) 03/26/18 14:45 Urine Blood Neg (Negative) 03/26/18 14:45 Urine Nitrite Neg (Negative) 03/26/18 14:45 Urine Bilirubin Neg (Negative) 03/26/18 14:45 Urine Urobilinogen 2.0 mg/dL (<2.0) 03/26/18 14:45 Ur Leukocyte Esterase Tr (Negative) 03/26/18 14:45 Urine WBC (Auto) < 1.0 /HPF (0.0-6.0) 03/26/18 14:45 Urine RBC (Auto) 1.0 /HPF (0.0-6.0) 03/26/18 14:45 U Epithel Cells (Auto) < 1.0 /HPF (0-13.0) 03/26/18 14:45
[2018-03-30] MEDS: LOVENOX SUB-Q SCH (21:43)
[2018-03-31] MEDS: DILAUDID IV PRN ×4 (04:56→23:09)
[2018-03-31] MEDS: LASIX PO SCH (05:00)
[2018-03-31] MEDS: SYNTHROID PO SCH ×2 (05:00)
[2018-03-31 05:40] LABS: Hematocrit 33.4 % (35.5-45.6); Hemoglobin 11.2 gm/dl (11.8-15.2); Mean Corpuscular HGB Conc 33 % (32-34); Mean Corpuscular Volume 87 fl (84-94); Platelet Count 163 K/mm3 (140-440); Red Blood Count 3.85 M/mm3 (3.65-5.03); Red Cell Distribution Width 16.2 % (13.2-15.2)
[2018-03-31 05:56] LABS: BUN/Creatinine Ratio 15; Blood Urea Nitrogen 17 mg/dL (9-20); Calcium 8.7 mg/dL (8.4-10.2); Hemolysis Index 47
[2018-03-31] MEDS: HumaLOG SUB-Q SCH ×4 (08:13→23:08)
[2018-03-31] MEDS: PLAVIX PO SCH (10:23)
[2018-03-31] MEDS: LYRICA PO SCH ×4 (10:23→21:34)
[2018-03-31] MEDS: ZESTRIL PO SCH (10:23)
[2018-03-31] MEDS: ASPIRIN PO SCH (10:23)
[2018-03-31] MEDS: NORVASC PO SCH (10:24)
[2018-03-31] MEDS: CATAPRES PO SCH ×2 (10:24→21:33)
[2018-03-31] MEDS: FLOMAX PO SCH (10:24)
[2018-03-31] MEDS: ZYLOPRIM PO SCH (10:24)
--- NOTE | 2018-03-31 15:27 | Progress Note ---
Assessment and Plan Assessment and plan: Patient is 62 yo man with a history BPH, hypertension, dyslipidemia, gout, peripheral neuropathy, type 2 DM and OA who presented to [facility] ED in slurred speech that started 3 days followed by left side weakness. * MRI brain wo contrast FINDINGS: The ventricles and sulci are normal for age. Focal restricted diffusion involves the right side of the felix, abuts the midline and measures 14 x 9 mm. No other restricted diffusion. There is corresponding T2 hyperintensity in the felix on FLAIR and T2. Moderate bilateral multifocal subcortical and deep white matter hyperintensities on FLAIR and T2. No mass or mass effect. No hemorrhage, edema or extra-axial collection. No chronic microbleeds on the gradient echo sequence. Normal pituitary and optic chiasm. Intact vascular flow voids. Normal sinuses. The o rbits, and soft tissues are normal. Normal calvarium and skull base. IMPRESSION: 1. An acute/subacute nonhemorrhagic right pontine infarct. 2. Moderate bilateral chronic white matter microangiopathy. 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 Mancilla, who states he doesn't need transfer, needs outpatient follow up at [place], call [phone] -Type 2 DM, uncontrolled hyperglycemia, A1C 13.2: treatment counselor on compliance, increased 70/30 to 55units bid and SSI -Constipation: dulcolax supp. -Hypertension: cardiac diet -Dyslipidemia: statin Discharge planning issues: Patient needs rehab but he doesn't have insurance except for [facility] benefits. I called [place] [phone] to see if they can get him rehab, if not then I would discharge and he can [facility] not walking, too unsteady per PT, d/w PT, he needs inpatient rehab, I called the [place] Utilization management for transfer, dept [phone], no one answered. I called twice. I called and spoke with Crista again and she put me through to the staffing administrator, Augusto. I spoke with Augusto. Patient is in the system. He can be treated outside [place] and presents the bill for "Fee basis" and Utilization Review gone for the day (8am-4pm). [place] doesn't have inpatient but they send their stroke patient to [facility]. d/w , she is concerned abd pains and n/v. s/p abd u/s (fatty liver otherwise unremarkable) and dulcolax suppository given spoke with in personal again today anticipate discharge tomorrow, I have asked naun Lara to speak with , patient has an appointment with the [place] on Sunday. History Interval history: Patient was seen and examined. Follow-up on current diagnosis of CVA. Overnight uneventful. Patient denies any chest pain, shortness breath, nausea/vomiting or severe headaches. Imaging, nursing note, chart, labs and old chart reviewed. Discussed with patient. Hospitalist Physical - Physical exam Narrative exam: Gen: WDWN, NAD, Awake, Alert, Orientated HEENT: NCAT, EOMI, PERRL, OP Clear Neck: supple, no adenopathy, no thyromegaly, no JVD CVS/Heart: RRR, normal S1S2, pulses present bilaterally Chest/Lungs: CTA B, Symmetrical chest expansion, good air entry bilaterally GI/Abdomen: soft, NTND, good bowel sounds, no guarding or rebound /Bladder: no suprapubic tenderness, no CVA or paraspinal tenderness Extermity/Skin: no c/c/e, no obvious rash MSK: FROM x3, left side weakness Neuro: CN 2-12 grossly intact, no new focal deficits, dysarthric and left hemiparesis 3/5 msk strength Psych: calm - Constitutional Vitals: Temp Pulse Resp BP Pulse Ox 97.8 F 67 20 131/69 95 03/31/18 09:01 03/31/18 09:01 03/31/18 12:11 03/31/18 10:24 03/31/18 09:01 Results - Labs CBC & Chem 7: 03/31/18 05:00 03/31/18 05:00 Labs: Laboratory Last Values WBC 6.6 K/mm3 (4.5-11.0) 03/31/18 05:00 RBC 3.85 M/mm3 (3.65-5.03) 03/31/18 05:00 Hgb 11.2 gm/dl (11.8-15.2) L 03/31/18 05:00 Hct 33.4 % (35.5-45.6) L 03/31/18 05:00 MCV 87 fl (84-94) 03/31/18 05:00 MCH 29 pg (28-32) 03/31/18 05:00 MCHC 33 % (32-34) 03/31/18 05:00 RDW 16.2 % (13.2-15.2) H 03/31/18 05:00 Plt Count 163 K/mm3 (140-440) 03/31/18 05:00 Lymph % (Auto) 31.3 % (13.4-35.0) 03/27/18 06:13 [place] % (Auto) 13.1 % (0.0-7.3) H 03/27/18 06:13 Eos % (Auto) 8.6 % (0.0-4.3) H 03/27/18 06:13 Baso % (Auto) 0.6 % (0.0-1.8) 03/27/18 06:13 Lymph # 1.3 K/mm3 (1.2-5.4) 03/27/18 06:13 [place] # 0.5 K/mm3 (0.0-0.8) 03/27/18 06:13 Eos # 0.4 K/mm3 (0.0-0.4) 03/27/18 06:13 Baso # 0.0 K/mm3 (0.0-0.1) 03/27/18 06:13 Seg Neutrophils % 46.4 % (40.0-70.0) 03/27/18 06:13 Seg Neutrophils # 1.9 K/mm3 (1.8-7.7) 03/27/18 06:13 Sodium 138 mmol/L (137-145) 03/31/18 05:00 Potassium 4.2 mmol/L (3.6-5.0) 03/31/18 05:00 Chloride 99.4 mmol/L (98-107) 03/31/18 05:00 Carbon Dioxide 24 mmol/L (22-30) 03/31/18 05:00 Anion Gap 19 mmol/L 03/31/18 05:00 BUN 17 mg/dL (9-20) 03/31/18 05:00 Creatinine 1.1 mg/dL (0.8-1.5) 03/31/18 05:00 Estimated GFR > 60 ml/min 03/31/18 05:00 BUN/Creatinine Ratio 15 % 03/31/18 05:00 Glucose 297 mg/dL (75-100) H 03/31/18 05:00 POC Glucose 276 (70-105) H 03/31/18 05:53 Hemoglobin A1c 13.2 % (4-6) H 03/26/18 13:21 Calcium 8.7 mg/dL (8.4-10.2) 03/31/18 05:00 Total Bilirubin 0.60 mg/dL (0.1-1.2) 03/27/18 06:13 AST 17 units/L (5-40) 03/27/18 06:13 ALT 29 units/L (7-56) 03/27/18 06:13 Alkaline Phosphatase 100 units/L (35-129) 03/27/18 06:13 Total Protein 5.6 g/dL (6.3-8.2) L 03/27/18 06:13 Albumin 3.3 g/dL (3.9-5) L 03/27/18 06:13 Albumin/Globulin Ratio 1.4 % 03/27/18 06:13 Triglycerides 128 mg/dL (2-149) 03/27/18 06:13 Cholesterol 105 mg/dL (50-199) 03/27/18 06:13 LDL Cholesterol Direct 69 mg/dL (50-130) 03/27/18 06:13 HDL Cholesterol 31 mg/dL (40-59) L 03/27/18 06:13 Cholesterol/HDL Ratio 3.38 % 03/27/18 06:13 Lipase 20 units/L (13-60) 03/26/18 13:21 Vitamin B12 1029 pg/mL (211-911) H 03/27/18 19:25 TSH 3.100 mlU/mL (0.270-4.200) 03/27/18 19:25 Free T4 1.25 ng/dL (0.76-1.46) 03/27/18 19:25 Urine Color Yellow (Yellow) 03/26/18 14:45 Urine Turbidity Clear (Clear) 03/26/18 14:45 Urine pH 5.0 (5.0-7.0) 03/26/18 14:45 Ur Specific [place] 1.033 (1.003-1.030) H 03/26/18 14:45 Urine Protein <15 mg/dl mg/dL (Negative) 03/26/18 14:45 Urine Glucose (UA) >=500 mg/dL (Negative) 03/26/18 14:45 Urine Ketones Neg mg/dL (Negative) 03/26/18 14:45 Urine Blood Neg (Negative) 03/26/18 14:45 Urine Nitrite Neg (Negative) 03/26/18 14:45 Urine Bilirubin Neg (Negative) 03/26/18 14:45 Urine Urobilinogen 2.0 mg/dL (<2.0) 03/26/18 14:45 Ur Leukocyte Esterase Tr (Negative) 03/26/18 14:45 Urine WBC (Auto) < 1.0 /HPF (0.0-6.0) 03/26/18 14:45 Urine RBC (Auto) 1.0 /HPF (0.0-6.0) 03/26/18 14:45 U Epithel Cells (Auto) < 1.0 /HPF (0-13.0) 03/26/18 14:45
[2018-03-31] MEDS: LOVENOX SUB-Q SCH (21:34)
[2018-03-31] MEDS: SODIUM CHLORIDE FLUSH SYRINGE 10 ML IV SCH ×2 (21:35)
[2018-04-01] MEDS: LASIX PO SCH (06:15)
[2018-04-01] MEDS: SYNTHROID PO SCH ×2 (06:15)
[2018-04-01] MEDS: ZESTRIL PO SCH (09:15)
[2018-04-01] MEDS: PLAVIX PO SCH (09:16)
[2018-04-01] MEDS: ASPIRIN PO SCH (09:16)
[2018-04-01] MEDS: LYRICA PO SCH ×4 (09:17→22:04)
[2018-04-01] MEDS: DILAUDID IV PRN ×3 (09:18→22:19)
[2018-04-01] MEDS: FLOMAX PO SCH (09:18)
[2018-04-01] MEDS: ZYLOPRIM PO SCH (09:18)
[2018-04-01] MEDS: NORVASC PO SCH (09:18)
[2018-04-01] MEDS: HumaLOG SUB-Q SCH ×4 (09:28→22:20)
[2018-04-01] MEDS: SODIUM CHLORIDE FLUSH SYRINGE 10 ML IV SCH ×2 (09:29→22:04)
--- NOTE | 2018-04-01 10:20 | Progress Note ---
Assessment and Plan Assessment and plan: Patient is 62 yo man with a history BPH, hypertension, dyslipidemia, gout, peripheral neuropathy, type 2 DM and OA who presented to [facility] ED in slurred speech that started 3 days followed by left side weakness. * MRI brain wo contrast FINDINGS: The ventricles and sulci are normal for age. Focal restricted diffusion involves the right side of the felix, abuts the midline and measures 14 x 9 mm. No other restricted diffusion. There is corresponding T2 hyperintensity in the felix on FLAIR and T2. Moderate bilateral multifocal subcortical and deep white matter hyperintensities on FLAIR and T2. No mass or mass effect. No hemorrhage, edema or extra-axial collection. No chronic microbleeds on the gradient echo sequence. Normal pituitary and optic chiasm. Intact vascular flow voids. Normal sinuses. The o rbits, and soft tissues are normal. Normal calvarium and skull base. IMPRESSION: 1. An acute/subacute nonhemorrhagic right pontine infarct. 2. Moderate bilateral chronic white matter microangiopathy. 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 Mancilla, who states he doesn't need transfer, needs outpatient follow up at [place], call [phone] -Type 2 DM, uncontrolled hyperglycemia, A1C 13.2: securities counselor on compliance, increased 70/30 to 55units bid and SSI -Constipation: dulcolax supp. -Hypertension: cardiac diet -Dyslipidemia: statin Discharge planning issues: Patient needs rehab but he doesn't have insurance except for [facility] benefits. I called [place] [phone] to see if they can get him rehab, if not then I would discharge and [facility] can [facility]. He is not walking, too unsteady per PT, d/w PT, he needs inpatient rehab, I called the [place] Utilization management for transfer, dept [phone], no one answered. I called twice. I called and spoke with Crista (dehydration plant operator) again and she put me through to the facility administrator, Augusto. I spoke with Augusto. Lubna roberts is in the system per Augusto. He can be treated outside [place] and presents the bill for "Fee basis" per Augusto and Utilization Review gone for the day (8am-4pm Sunday to Sunday). [facility] doesn't have inpatient rehab but they send their stroke patient to [facility]. d/w , she is concerned about chronic abd pains and n/v. s/p abd u/s (fatty liver otherwise unremarkable) and dulcolax suppository given I spoke with today, her concerns are the following: no Physical therapy done this past weekend, wants to get him transferred to [facility] hospital, patient needs wheelchair, home not handicap freely and constipation anticipate discharge tomorrow, I have asked naun Lara to speak with , patient has an appointment with the [facility] on Sunday. I called [facility] hospital again and asked for Transfer/Utilization, they are closed today per Dillon (from switchboard) and he reluctantly transferred me and I got no answer. History Interval history: Patient was seen and examined. Follow-up on current diagnosis of CVA. Overnight uneventful. Patient denies any chest pain, shortness breath, nausea/vomiting or severe headaches. Imaging, nursing note, chart, labs and old chart reviewed. Discussed with patient. Hospitalist Physical - Physical exam Narrative exam: Gen: WDWN, NAD, Awake, Alert, Orientated HEENT: NCAT, EOMI, PERRL, OP Clear Neck: supple, no adenopathy, no thyromegaly, no JVD CVS/Heart: RRR, normal S1S2, pulses present bilaterally Chest/Lungs: CTA B, Symmetrical chest expansion, good air entry bilaterally GI/Abdomen: soft, NTND, good bowel sounds, no guarding or rebound /Bladder: no suprapubic tenderness, no CVA or paraspinal tenderness Extermity/Skin: no c/c/e, no obvious rash MSK: FROM x3, left side weakness Neuro: CN 2-12 grossly intact, no new focal deficits, dysarthric and left hemiparesis 3/5 msk strength Psych: calm - Constitutional Vitals: Temp Pulse Resp BP Pulse Ox 98.2 F 76 18 147/70 94 04/01/18 08:38 04/01/18 09:18 04/01/18 08:37 04/01/18 09:18 04/01/18 08:37 Results - Labs CBC & Chem 7: 03/31/18 05:00 03/31/18 05:00 Labs: Laboratory Last Values WBC 6.6 K/mm3 (4.5-11.0) 03/31/18 05:00 RBC 3.85 M/mm3 (3.65-5.03) 03/31/18 05:00 Hgb 11.2 gm/dl (11.8-15.2) L 03/31/18 05:00 Hct 33.4 % (35.5-45.6) L 03/31/18 05:00 MCV 87 fl (84-94) 03/31/18 05:00 MCH 29 pg (28-32) 03/31/18 05:00 MCHC 33 % (32-34) 03/31/18 05:00 RDW 16.2 % (13.2-15.2) H 03/31/18 05:00 Plt Count 163 K/mm3 (140-440) 03/31/18 05:00 Lymph % (Auto) 31.3 % (13.4-35.0) 03/27/18 06:13 [place] % (Auto) 13.1 % (0.0-7.3) H 03/27/18 06:13 Eos % (Auto) 8.6 % (0.0-4.3) H 03/27/18 06:13 Baso % (Auto) 0.6 % (0.0-1.8) 03/27/18 06:13 Lymph # 1.3 K/mm3 (1.2-5.4) 03/27/18 06:13 [place] # 0.5 K/mm3 (0.0-0.8) 03/27/18 06:13 Eos # 0.4 K/mm3 (0.0-0.4) 03/27/18 06:13 Baso # 0.0 K/mm3 (0.0-0.1) 03/27/18 06:13 Seg Neutrophils % 46.4 % (40.0-70.0) 03/27/18 06:13 Seg Neutrophils # 1.9 K/mm3 (1.8-7.7) 03/27/18 06:13 Sodium 138 mmol/L (137-145) 03/31/18 05:00 Potassium 4.2 mmol/L (3.6-5.0) 03/31/18 05:00 Chloride 99.4 mmol/L (98-107) 03/31/18 05:00 Carbon Dioxide 24 mmol/L (22-30) 03/31/18 05:00 Anion Gap 19 mmol/L 03/31/18 05:00 BUN 17 mg/dL (9-20) 03/31/18 05:00 Creatinine 1.1 mg/dL (0.8-1.5) 03/31/18 05:00 Estimated GFR > 60 ml/min 03/31/18 05:00 BUN/Creatinine Ratio 15 % 03/31/18 05:00 Glucose 297 mg/dL (75-100) H 03/31/18 05:00 POC Glucose 276 (70-105) H 03/31/18 05:53 Hemoglobin A1c 13.2 % (4-6) H 03/26/18 13:21 Calcium 8.7 mg/dL (8.4-10.2) 03/31/18 05:00 Total Bilirubin 0.60 mg/dL (0.1-1.2) 03/27/18 06:13 AST 17 units/L (5-40) 03/27/18 06:13 ALT 29 units/L (7-56) 03/27/18 06:13 Alkaline Phosphatase 100 units/L (35-129) 03/27/18 06:13 Total Protein 5.6 g/dL (6.3-8.2) L 03/27/18 06:13 Albumin 3.3 g/dL (3.9-5) L 03/27/18 06:13 Albumin/Globulin Ratio 1.4 % 03/27/18 06:13 Triglycerides 128 mg/dL (2-149) 03/27/18 06:13 Cholesterol 105 mg/dL (50-199) 03/27/18 06:13 LDL Cholesterol Direct 69 mg/dL (50-130) 03/27/18 06:13 HDL Cholesterol 31 mg/dL (40-59) L 03/27/18 06:13 Cholesterol/HDL Ratio 3.38 % 03/27/18 06:13 Lipase 20 units/L (13-60) 03/26/18 13:21 Vitamin B12 1029 pg/mL (211-911) H 03/27/18 19:25 TSH 3.100 mlU/mL (0.270-4.200) 03/27/18 19:25 Free T4 1.25 ng/dL (0.76-1.46) 03/27/18 19:25 Urine Color Yellow (Yellow) 03/26/18 14:45 Urine Turbidity Clear (Clear) 03/26/18 14:45 Urine pH 5.0 (5.0-7.0) 03/26/18 14:45 Ur Specific [place] 1.033 (1.003-1.030) H 03/26/18 14:45 Urine Protein <15 mg/dl mg/dL (Negative) 03/26/18 14:45 Urine Glucose (UA) >=500 mg/dL (Negative) 03/26/18 14:45 Urine Ketones Neg mg/dL (Negative) 03/26/18 14:45 Urine Blood Neg (Negative) 03/26/18 14:45 Urine Nitrite Neg (Negative) 03/26/18 14:45 Urine Bilirubin Neg (Negative) 03/26/18 14:45 Urine Urobilinogen 2.0 mg/dL (<2.0) 03/26/18 14:45 Ur Leukocyte Esterase Tr (Negative) 03/26/18 14:45 Urine WBC (Auto) < 1.0 /HPF (0.0-6.0) 03/26/18 14:45 Urine RBC (Auto) 1.0 /HPF (0.0-6.0) 03/26/18 14:45 U Epithel Cells (Auto) < 1.0 /HPF (0-13.0) 03/26/18 14:45
--- NOTE | 2018-04-01 10:25 | Discharge Summary ---
Providers - Providers Date of Admission: 03/26/18 14:36 Date of discharge: 04/01/18 Attending physician: CORY HAWKINS 03/26/18 20:03 Consult to Physician [CONS] Routine Comment: Consulting Provider: BINA DONOHUE Physician Instructions: Reason For Exam: cva 03/26/18 20:06 Occupational Therapy Evaluate and Treat [CONS] Routine Comment: Reason For Exam: Neuro deficits Physical Therapy Evaluation and Treat [CONS] Routine Comment: Reason For Exam: Neuro deficits Primary care physician: MARY JO GEORGE Hospitalization Condition: Stable Hospital course: Patient is 62 yo man with a history BPH, hypertension, dyslipidemia, gout, peripheral neuropathy, type 2 DM and OA who presented to [facility] ED in slurred speech that started 3 days followed by left side weakness. * MRI brain wo contrast FINDINGS: The ventricles and sulci are normal for age. Focal restricted diffusion involves the right side of the felix, abuts the midline and measures 14 x 9 mm. No other restricted diffusion. There is corresponding T2 hyperintensity in the felix on FLAIR and T2. Moderate bilateral multifocal subcortical and deep white matter hyperintensities on FLAIR and T2. No mass or mass effect. No hemorrhage, edema or extra-axial collection. No chronic microbleeds on the gradient echo sequence. Normal pituitary and optic chiasm. Intact vascular flow voids. Normal sinuses. The orbits, and soft tissues are normal. Normal calvarium and skull base. IMPRESSION: 1. An acute/subacute nonhemorrhagic right pontine infarct. 2. Moderate bilateral chronic white matter microangiopathy. * MRA head wo contrast: 3 mm saccular aneurysm left MCA without rupture -Acute Ischemic CVA with left hemiparesis: continue dual antiplt, a/c maybe too risky with the aneursym -3 mm saccular aneurysm left MCA without rupture: I called [place] [facility] [place] for NSY evaluation; I spoke with Lee Ann==>Angélica==> spoke with Neurosurgeon, Dr. Mancilla, who states he doesn't need transfer, needs outpatient follow up at [place], call [phone] -Type 2 DM, uncontrolled hyperglycemia, A1C 13.2: senior living sales counselor on compliance, increased 70/30 to 55units bid and SSI -Constipation: dulcolax supp. -Hypertension: cardiac diet -Dyslipidemia: statin Discharge planning issues: Patient needs rehab but he doesn't have insurance except for [facility] benefits. I called [place] [phone] to see if they can get him rehab, if not then I would discharge and he can [facility] with [facility]. He is not walking, too unsteady per PT, d/w PT, he needs inpatient rehab, I called the [place] Utilization management for transfer, dept [phone], no one answered. I called twice. I called and spoke with Crista (cutting machine operator) again and she put me through to the jr. systems administrator, Augusto. I spoke with Augusto. Patient is in the system per Augusto. He can be treated outside [place] and presents the bill for "Fee basis" per Augusto and Utilization Review gone for the day (8am-4pm Sunday to Sunday). [facility] doesn't have inpatient rehab but they send their stroke patient to [facility]. d/w , she is concerned about chronic abd pains and n/v. s/p abd u/s (fatty liver otherwise unremarkable) and dulcolax suppository given I spoke with today, her concerns are the following: no Physical therapy done this past weekend, wants to get him transferred to [facility] hospital, patient needs wheelchair, home not handicap freely and constipation. Patient has anticipate discharge tomorrow, I have asked naun Lara to speak with , [facility]. I called [place] hospital again and asked for Transfer/Utilization, they are closed today per Dillon (from switchboard) and he reluctantly transferred me and I got no answer. Disposition: DC/TX- HOME [facility] Time spent for discharge: 35 minutes Core Measure Documentation - Palliative Care Palliative Care/ Comfort Measures: Not Applicable - Core Measures Any of the following diagnoses?: stroke - VTE Discharge Requirements Deep Vein Thrombosis/Pulmonary Embolism Present on Admission: No Has pt received <5 days of overlap therapy or INR<2.0: No Anticoagulant overlap therapy prescribed at discharge: No Contraindication No Overlap Therapy order at DC: Not Indicated - Stroke Discharge Requirements Statin for LDL = or >70 mg/dl on DC: Yes Anticoag for atrial fib/atrial flutter: Not Applicable Reason for no anticoag for AF/F on DC: Not Indicated Antithrombotic for ischemic stroke: Yes Exam - Physical Exam Narrative exam: Gen: WDWN, NAD, Awake, Alert, Orientated HEENT: NCAT, EOMI, PERRL, OP Clear Neck: supple, no adenopathy, no thyromegaly, no JVD CVS/Heart: RRR, normal S1S2, pulses present bilaterally Chest/Lungs: CTA B, Symmetrical chest expansion, good air entry bilaterally GI/Abdomen: soft, NTND, good bowel sounds, no guarding or rebound /Bladder: no suprapubic tenderness, no CVA or paraspinal tenderness Extermity/Skin: no c/c/e, no obvious rash MSK: FROM x3, left side weakness Neuro: CN 2-12 grossly intact, no new focal deficits, dysarthric and left hemiparesis 2-/ Psych: calm - Constitutional Vitals: Temp Pulse Resp BP Pulse Ox 98.2 F 76 18 147/70 94 04/01/18 08:38 04/01/18 09:18 04/01/18 08:37 04/01/18 09:18 04/01/18 08:37 Plan Activity: up only with assistance, fall precautions, other Diet: low salt, diabetic Special Instructions: record daily BP diary, record blood sugar diary Durable Medical Equipment Needed Upon Discharge: Wheelchair Follow up with: ABIEL, Primary doctor LUCY [Other] - 04/02/18 Prescriptions: RX: AtorvaSTATin [Lipitor] 40 mg PO QHS #30 tablet RX: Aspirin [Aspirin TAB] 325 mg PO QDAY #30 tablet RX: Clopidogrel [Plavix] 75 mg PO QDAY #30 tablet RX: Furosemide [Lasix TAB] 20 mg PO QDAY #30 tablet RX: oxyCODONE /ACETAMINOPHEN [Percocet 5/325 mg] 1 tab PO Q6H PRN #15 tablet PRN Reason: Pain , Severe (7-10) Polyethylene Glycol 3350 [Miralax] 17 gm PO DAILY 15 Days #1 bottle Other Discharge Orders: Glucometer supplies[Amb] Location: None Selected Glucometer (Amb) Location: None Selected
[2018-04-01] MEDS: CATAPRES PO SCH ×2 (13:16→22:10)
--- NOTE | 2018-04-01 18:38 | Cat Scan Report ---
FINAL REPORT PROCEDURE: CT head without contrast. TECHNIQUE: Computerized tomography of the head was performed without contrast material. HISTORY: Stroke. COMPARISON: CT head 03/26/2018. FINDINGS: The ventricles are normal in size. There is focal low attenuation in the right side of the felix. This was not clearly present on the previous study. It is consistent with a subacute stroke. This could b e confirmed with an MRI scan if clinically indicated. There are no mass lesions. There is no intracra nial hemorrhage. The calvarium appears intact. The mastoid air cells and paranasal sinuses are clear as far as visualized. IMPRESSION: Subacute stroke in the right side of the felix.
[2018-04-01] MEDS: LOVENOX SUB-Q SCH (22:03)
[2018-04-02] MEDS: SYNTHROID PO SCH ×2 (05:51)
[2018-04-02] MEDS: LASIX PO SCH (05:51)
[2018-04-02] MEDS: DILAUDID IV PRN ×3 (08:52→21:34)
[2018-04-02] MEDS: CATAPRES PO SCH ×2 (09:16→21:28)
[2018-04-02] MEDS: NORVASC PO SCH (09:17)
[2018-04-02] MEDS: ASPIRIN PO SCH (09:18)
[2018-04-02] MEDS: PLAVIX PO SCH (09:18)
[2018-04-02] MEDS: ZESTRIL PO SCH (09:19)
[2018-04-02] MEDS: LYRICA PO SCH ×4 (09:19→21:29)
[2018-04-02] MEDS: ZYLOPRIM PO SCH (09:20)
[2018-04-02] MEDS: FLOMAX PO SCH (09:21)
[2018-04-02] MEDS: SODIUM CHLORIDE FLUSH SYRINGE 10 ML IV SCH ×2 (09:22→21:29)
[2018-04-02] MEDS: HumaLOG SUB-Q SCH ×4 (09:22→21:25)
--- NOTE | 2018-04-02 11:04 | Progress Note ---
Assessment and Plan Assessment and plan: Patient is 62 yo man with a history BPH, hypertension, dyslipidemia, gout, peripheral neuropathy, type 2 DM and OA who presented to [facility] ED in slurred speech that started 3 days followed by left side weakness. * MRI brain wo contrast FINDINGS: The ventricles and sulci are normal for age. Focal restricted diffusion involves the right side of the felix, abuts the midline and measures 14 x 9 mm. No other restricted diffusion. There is corresponding T2 hyperintensity in the felix on FLAIR and T2. Moderate bilateral multifocal subcortical and deep white matter hyperintensities on FLAIR and T2. No mass or mass effect. No hemorrhage, edema or extra-axial collection. No chronic microbleeds on the gradient echo sequence. Normal pituitary and optic chiasm. Intact vascular flow voids. Normal sinuses. The o rbits, and soft tissues are normal. Normal calvarium and skull base. IMPRESSION: 1. An acute/subacute nonhemorrhagic right pontine infarct. 2. Moderate bilateral chronic white matter microangiopathy. * MRA head wo contrast: 3 mm saccular aneurysm left MCA without rupture -Acute CVA,now flaccid on the left from right ischemic pontine stroke: continue dual antiplt, a/c maybe too risky with the aneursym -3 mm saccular aneurysm left MCA without rupture: I called [place] [facility] [place] for NSY evaluation; I spoke with Lee Ann==>Angélica==> spoke with Neurosurgeon, Dr. Mancilla, who states he doesn't need transfer, needs outpatient follow up at [place], call [phone] -Type 2 DM, uncontrolled hyperglycemia, A1C 13.2: alcoholic counselor on compliance, increased 70/30 to 55units bid and SSI -Constipation: dulcolax supp. -Hypertension: cardiac diet -Dyslipidemia: statin Discharge planning issues: trying to get patient into Inpatient Rehab once [facility] allows [facility] [phone] History Interval history: Patient was seen and examined. Follow-up on current diagnosis of CVA. Overnight uneventful. Patient denies any chest pain, shortness breath, nausea/vomiting or severe headaches. Imaging, nursing note, chart, labs and old chart reviewed. Discussed with patient. Hospitalist Physical - Physical exam Narrative exam: Gen: WDWN, NAD, Awake, Alert, Orientated HEENT: NCAT, EOMI, PERRL, OP Clear Neck: supple, no adenopathy, no thyromegaly, no JVD CVS/Heart: RRR, normal S1S2, pulses present bilaterally Chest/Lungs: CTA B, Symmetrical chest expansion, good air entry bilaterally GI/Abdomen: soft, NTND, good bowel sounds, no guarding or rebound /Bladder: no suprapubic tenderness, no CVA or paraspinal tenderness Extermity/Skin: no c/c/e, no obvious rash MSK: FROM x3, left side weakness Neuro: CN 2-12 grossly intact, no new focal deficits, dysarthric and left hemiparesis 2-05/14 Psych: calm - Constitutional Vitals: Temp Pulse Resp BP Pulse Ox 98.1 F 62 16 102/57 98 04/02/18 05:32 04/02/18 09:17 04/02/18 05:32 04/02/18 09:17 04/02/18 05:32 Results - Labs CBC & Chem 7: 03/31/18 05:00 03/31/18 05:00 Labs: Laboratory Last Values WBC 6.6 K/mm3 (4.5-11.0) 03/31/18 05:00 RBC 3.85 M/mm3 (3.65-5.03) 03/31/18 05:00 Hgb 11.2 gm/dl (11.8-15.2) L 03/31/18 05:00 Hct 33.4 % (35.5-45.6) L 03/31/18 05:00 MCV 87 fl (84-94) 03/31/18 05:00 MCH 29 pg (28-32) 03/31/18 05:00 MCHC 33 % (32-34) 03/31/18 05:00 RDW 16.2 % (13.2-15.2) H 03/31/18 05:00 Plt Count 163 K/mm3 (140-440) 03/31/18 05:00 Lymph % (Auto) 31.3 % (13.4-35.0) 03/27/18 06:13 [place] % (Auto) 13.1 % (0.0-7.3) H 03/27/18 06:13 Eos % (Auto) 8.6 % (0.0-4.3) H 03/27/18 06:13 Baso % (Auto) 0.6 % (0.0-1.8) 03/27/18 06:13 Lymph # 1.3 K/mm3 (1.2-5.4) 03/27/18 06:13 [place] # 0.5 K/mm3 (0.0-0.8) 03/27/18 06:13 Eos # 0.4 K/mm3 (0.0-0.4) 03/27/18 06:13 Baso # 0.0 K/mm3 (0.0-0.1) 03/27/18 06:13 Seg Neutrophils % 46.4 % (40.0-70.0) 03/27/18 06:13 Seg Neutrophils # 1.9 K/mm3 (1.8-7.7) 03/27/18 06:13 Sodium 138 mmol/L (137-145) 03/31/18 05:00 Potassium 4.2 mmol/L (3.6-5.0) 03/31/18 05:00 Chloride 99.4 mmol/L (98-107) 03/31/18 05:00 Carbon Dioxide 24 mmol/L (22-30) 03/31/18 05:00 Anion Gap 19 mmol/L 03/31/18 05:00 BUN 17 mg/dL (9-20) 03/31/18 05:00 Creatinine 1.1 mg/dL (0.8-1.5) 03/31/18 05:00 Estimated GFR > 60 ml/min 03/31/18 05:00 BUN/Creatinine Ratio 15 % 03/31/18 05:00 Glucose 297 mg/dL (75-100) H 03/31/18 05:00 POC Glucose 251 (70-105) H 04/02/18 08:29 Hemoglobin A1c 13.2 % (4-6) H 03/26/18 13:21 Calcium 8.7 mg/dL (8.4-10.2) 03/31/18 05:00 Total Bilirubin 0.60 mg/dL (0.1-1.2) 03/27/18 06:13 AST 17 units/L (5-40) 03/27/18 06:13 ALT 29 units/L (7-56) 03/27/18 06:13 Alkaline Phosphatase 100 units/L (35-129) 03/27/18 06:13 Total Protein 5.6 g/dL (6.3-8.2) L 03/27/18 06:13 Albumin 3.3 g/dL (3.9-5) L 03/27/18 06:13 Albumin/Globulin Ratio 1.4 % 03/27/18 06:13 Triglycerides 128 mg/dL (2-149) 03/27/18 06:13 Cholesterol 105 mg/dL (50-199) 03/27/18 06:13 LDL Cholesterol Direct 69 mg/dL (50-130) 03/27/18 06:13 HDL Cholesterol 31 mg/dL (40-59) L 03/27/18 06:13 Cholesterol/HDL Ratio 3.38 % 03/27/18 06:13 Lipase 20 units/L (13-60) 03/26/18 13:21 Vitamin B12 1029 pg/mL (211-911) H 03/27/18 19:25 TSH 3.100 mlU/mL (0.270-4.200) 03/27/18 19:25 Free T4 1.25 ng/dL (0.76-1.46) 03/27/18 19:25 Urine Color Yellow (Yellow) 03/26/18 14:45 Urine Turbidity Clear (Clear) 03/26/18 14:45 Urine pH 5.0 (5.0-7.0) 03/26/18 14:45 Ur Specific [place] 1.033 (1.003-1.030) H 03/26/18 14:45 Urine Protein <15 mg/dl mg/dL (Negative) 03/26/18 14:45 Urine Glucose (UA) >=500 mg/dL (Negative) 03/26/18 14:45 Urine Ketones Neg mg/dL (Negative) 03/26/18 14:45 Urine Blood Neg (Negative) 03/26/18 14:45 Urine Nitrite Neg (Negative) 03/26/18 14:45 Urine Bilirubin Neg (Negative) 03/26/18 14:45 Urine Urobilinogen 2.0 mg/dL (<2.0) 03/26/18 14:45 Ur Leukocyte Esterase Tr (Negative) 03/26/18 14:45 Urine WBC (Auto) < 1.0 /HPF (0.0-6.0) 03/26/18 14:45 Urine RBC (Auto) 1.0 /HPF (0.0-6.0) 03/26/18 14:45 U Epithel Cells (Auto) < 1.0 /HPF (0-13.0) 03/26/18 14:45
[2018-04-02] MEDS: LOVENOX SUB-Q SCH (21:26)
[2018-04-03] MEDS: DILAUDID IV PRN ×6 (01:29→21:55)
[2018-04-03] MEDS: LASIX PO SCH (05:31)
[2018-04-03] MEDS: SYNTHROID PO SCH ×2 (05:31)
[2018-04-03] MEDS: HumaLOG SUB-Q SCH ×4 (09:54→21:40)
--- NOTE | 2018-04-03 10:25 | Progress Note ---
Assessment and Plan Assessment and plan: Patient is 62 yo man with a history BPH, hypertension, dyslipidemia, gout, peripheral neuropathy, type 2 DM and OA who presented to [facility] ED in slurred speech that started 3 days followed by left side weakness. * MRI brain wo contrast FINDINGS: The ventricles and sulci are normal for age. Focal restricted diffusion involves the right side of the felix, abuts the midline and measures 14 x 9 mm. No other restricted diffusion. There is corresponding T2 hyperintensity in the felix on FLAIR and T2. Moderate bilateral multifocal subcortical and deep white matter hyperintensities on FLAIR and T2. No mass or mass effect. No hemorrhage, edema or extra-axial collection. No chronic microbleeds on the gradient echo sequence. Normal pituitary and optic chiasm. Intact vascular flow voids. Normal sinuses. The o rbits, and soft tissues are normal. Normal calvarium and skull base. IMPRESSION: 1. An acute/subacute nonhemorrhagic right pontine infarct. 2. Moderate bilateral chronic white matter microangiopathy. 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 -Hypertension: cardiac diet -Dyslipidemia: statin Discharge planning issues: trying to get patient into Inpatient Rehab once [facility] allows, placement pending [facility] [phone] [id number] History Interval history: Patient was seen and examined. Follow-up on current diagnosis of CVA. Overnight uneventful. Patient denies any chest pain, shortness breath, nausea/vomiting or severe headaches. Imaging, nursing note, chart, labs and old chart reviewed. Discussed with patient. Hospitalist Physical - Physical exam Narrative exam: Gen: WDWN, NAD, Awake, Alert, Orientated HEENT: NCAT, EOMI, PERRL, OP Clear Neck: supple, no adenopathy, no thyromegaly, no JVD CVS/Heart: RRR, normal S1S2, pulses present bilaterally Chest/Lungs: CTA B, Symmetrical chest expansion, good air entry bilaterally GI/Abdomen: soft, NTND, good bowel sounds, no guarding or rebound /Bladder: no suprapubic tenderness, no CVA or paraspinal tenderness Extermity/Skin: no c/c/e, no obvious rash MSK: FROM x3, left side weakness Neuro: CN 2-12 grossly intact, no new focal deficits, dysarthric and left hemiparesis/flaccid now Psych: calm - Constitutional Vitals: Temp Pulse Resp BP Pulse Ox 99.8 F H 63 18 129/73 96 04/03/18 06:12 04/03/18 06:12 04/03/18 06:12 04/03/18 06:12 04/03/18 06:12 Results - Labs CBC & Chem 7: 03/31/18 05:00 03/31/18 05:00 Labs: Laboratory Last Values WBC 6.6 K/mm3 (4.5-11.0) 03/31/18 05:00 RBC 3.85 M/mm3 (3.65-5.03) 03/31/18 05:00 Hgb 11.2 gm/dl (11.8-15.2) L 03/31/18 05:00 Hct 33.4 % (35.5-45.6) L 03/31/18 05:00 MCV 87 fl (84-94) 03/31/18 05:00 MCH 29 pg (28-32) 03/31/18 05:00 MCHC 33 % (32-34) 03/31/18 05:00 RDW 16.2 % (13.2-15.2) H 03/31/18 05:00 Plt Count 163 K/mm3 (140-440) 03/31/18 05:00 Lymph % (Auto) 31.3 % (13.4-35.0) 03/27/18 06:13 [place] % (Auto) 13.1 % (0.0-7.3) H 03/27/18 06:13 Eos % (Auto) 8.6 % (0.0-4.3) H 03/27/18 06:13 Baso % (Auto) 0.6 % (0.0-1.8) 03/27/18 06:13 Lymph # 1.3 K/mm3 (1.2-5.4) 03/27/18 06:13 [place] # 0.5 K/mm3 (0.0-0.8) 03/27/18 06:13 Eos # 0.4 K/mm3 (0.0-0.4) 03/27/18 06:13 Baso # 0.0 K/mm3 (0.0-0.1) 03/27/18 06:13 Seg Neutrophils % 46.4 % (40.0-70.0) 03/27/18 06:13 Seg Neutrophils # 1.9 K/mm3 (1.8-7.7) 03/27/18 06:13 Sodium 138 mmol/L (137-145) 03/31/18 05:00 Potassium 4.2 mmol/L (3.6-5.0) 03/31/18 05:00 Chloride 99.4 mmol/L (98-107) 03/31/18 05:00 Carbon Dioxide 24 mmol/L (22-30) 03/31/18 05:00 Anion Gap 19 mmol/L 03/31/18 05:00 BUN 17 mg/dL (9-20) 03/31/18 05:00 Creatinine 1.1 mg/dL (0.8-1.5) 03/31/18 05:00 Estimated GFR > 60 ml/min 03/31/18 05:00 BUN/Creatinine Ratio 15 % 03/31/18 05:00 Glucose 297 mg/dL (75-100) H 03/31/18 05:00 POC Glucose 315 (70-105) H 04/03/18 09:17 Hemoglobin A1c 13.2 % (4-6) H 03/26/18 13:21 Calcium 8.7 mg/dL (8.4-10.2) 03/31/18 05:00 Total Bilirubin 0.60 mg/dL (0.1-1.2) 03/27/18 06:13 AST 17 units/L (5-40) 03/27/18 06:13 ALT 29 units/L (7-56) 03/27/18 06:13 Alkaline Phosphatase 100 units/L (35-129) 03/27/18 06:13 Total Protein 5.6 g/dL (6.3-8.2) L 03/27/18 06:13 Albumin 3.3 g/dL (3.9-5) L 03/27/18 06:13 Albumin/Globulin Ratio 1.4 % 03/27/18 06:13 Triglycerides 128 mg/dL (2-149) 03/27/18 06:13 Cholesterol 105 mg/dL (50-199) 03/27/18 06:13 LDL Cholesterol Direct 69 mg/dL (50-130) 03/27/18 06:13 HDL Cholesterol 31 mg/dL (40-59) L 03/27/18 06:13 Cholesterol/HDL Ratio 3.38 % 03/27/18 06:13 Lipase 20 units/L (13-60) 03/26/18 13:21 Vitamin B12 1029 pg/mL (211-911) H 03/27/18 19:25 TSH 3.100 mlU/mL (0.270-4.200) 03/27/18 19:25 Free T4 1.25 ng/dL (0.76-1.46) 03/27/18 19:25 Urine Color Yellow (Yellow) 03/26/18 14:45 Urine Turbidity Clear (Clear) 03/26/18 14:45 Urine pH 5.0 (5.0-7.0) 03/26/18 14:45 Ur Specific [place] 1.033 (1.003-1.030) H 03/26/18 14:45 Urine Protein <15 mg/dl mg/dL (Negative) 03/26/18 14:45 Urine Glucose (UA) >=500 mg/dL (Negative) 03/26/18 14:45 Urine Ketones Neg mg/dL (Negative) 03/26/18 14:45 Urine Blood Neg (Negative) 03/26/18 14:45 Urine Nitrite Neg (Negative) 03/26/18 14:45 Urine Bilirubin Neg (Negative) 03/26/18 14:45 Urine Urobilinogen 2.0 mg/dL (<2.0) 03/26/18 14:45 Ur Leukocyte Esterase Tr (Negative) 03/26/18 14:45 Urine WBC (Auto) < 1.0 /HPF (0.0-6.0) 03/26/18 14:45 Urine RBC (Auto) 1.0 /HPF (0.0-6.0) 03/26/18 14:45 U Epithel Cells (Auto) < 1.0 /HPF (0-13.0) 03/26/18 14:45
[2018-04-03] MEDS: NORVASC PO SCH (10:42)
[2018-04-03] MEDS: LYRICA PO SCH ×4 (10:42→21:39)
[2018-04-03] MEDS: ZYLOPRIM PO SCH (10:42)
[2018-04-03] MEDS: FLOMAX PO SCH (10:43)
[2018-04-03] MEDS: SODIUM CHLORIDE FLUSH SYRINGE 10 ML IV SCH ×2 (10:43→21:57)
[2018-04-03] MEDS: ASPIRIN PO SCH (10:43)
[2018-04-03] MEDS: ZESTRIL PO SCH (10:43)
[2018-04-03] MEDS: PLAVIX PO SCH (10:43)
[2018-04-03] MEDS: CATAPRES PO SCH ×2 (13:00→21:39)
[2018-04-03] MEDS: LOVENOX SUB-Q SCH (21:38)
[2018-04-04] MEDS: DILAUDID IV PRN ×2 (04:32→08:53)
[2018-04-04] MEDS: LASIX PO SCH (06:30)
[2018-04-04] MEDS: SYNTHROID PO SCH ×2 (06:30→06:32)
[2018-04-04] MEDS: HumaLOG SUB-Q SCH ×2 (07:30→11:30)
[2018-04-04] MEDS: CATAPRES PO SCH (09:00)
[2018-04-04] MEDS: SODIUM CHLORIDE FLUSH SYRINGE 10 ML IV SCH (10:00)
[2018-04-04] MEDS: PLAVIX PO SCH (10:27)
[2018-04-04] MEDS: ASPIRIN PO SCH (10:27)
[2018-04-04] MEDS: FLOMAX PO SCH (10:27)
[2018-04-04] MEDS: LYRICA PO SCH ×2 (10:28→10:29)
[2018-04-04] MEDS: ZYLOPRIM PO SCH (10:29)
[2018-04-04] MEDS: NORVASC PO SCH (10:29)
[2018-04-04] MEDS: ZESTRIL PO SCH (10:29)
[2018-04-04 13:16] VITALS: BP 129/72
--- NOTE | 2018-04-04 14:35 | Discharge Summary ---
Providers - Providers Date of Admission: 03/26/18 14:36 Date of discharge: 04/04/18 Attending physician: QUIRINO DE LA TORRE 03/26/18 20:03 Consult to Physician [CONS] Routine Comment: Consulting Provider: BINA DONOHUE Physician Instructions: Reason For Exam: cva 03/26/18 20:06 Occupational Therapy Evaluate and Treat [CONS] Routine Comment: Reason For Exam: Neuro deficits Physical Therapy Evaluation and Treat [CONS] Routine Comment: Reason For Exam: Neuro deficits 04/01/18 10:49 Occupational Therapy Evaluate and Treat [CONS] Routine Comment: Reason For Exam: ADLs evaluation Physical Therapy Evaluation and Treat [CONS] Routine Comment: Reason For Exam: gait evaluation/ambulatory dysfunction Primary care physician: MARY JO GEORGE Hospitalization Condition: Stable Hospital course: Assessment and Plan Assessment and plan: Patient is 62 yo man with a history BPH, hypertension, dyslipidemia, gout, peripheral neuropathy, type 2 DM and OA who presented to [facility] ED in slurred speech that started 3 days followed by left side weakness. * MRI brain wo contrast FINDINGS: The ventricles and sulci are normal for age. Focal restricted diffusion involves the right side of the felix, abuts the midline and measures 14 x 9 mm. No other restricted diffusion. There is corresponding T2 hyperintensity in the felix on FLAIR and T2. Moderate bilateral multifocal subcortical and deep white matter hyperintensities on FLAIR and T2. No mass or mass effect. No hemorrhage, edema or extra-axial collection. No chronic microbleeds on the gradient echo sequence. Normal pituitary and optic chiasm. Intact vascular flow voids. Normal sinuses. The orbits, and soft tissues are normal. Normal calvarium and skull base. IMPRESSION: 1. An acute/subacute nonhemorrhagic right pontine infarct. 2. Moderate bilateral chronic white matter microangiopathy. * MRA head wo contrast: 3 mm saccular aneurysm left MCA without rupture -Acute CVA,now flaccid on the left from right ischemic pontine stroke: continue dual antiplt, a/c maybe too risky with the aneursym -3 mm saccular aneurysm left MCA without rupture: [facility] center was called by Dr Johnson for NSY evaluation; He spoke with Lee Ann==>Angélica==> spoke with Neurosurgeon, Dr. Mancilla, who states he doesn't need transfer, needs outpatient follow up at [place], call [phone] -Type 2 DM, uncontrolled hyperglycemia, A1C 13.2: genetic counselor on compliance, increased 70/30 to 55units bid and SSI -Constipation: dulcolax supp. -Hypertension: cardiac diet,Cont Antihypertensives -Dyslipidemia: statins Discharge planning issues: D/c to SNF with subacute rehab Disposition: [place]-03 SNF [facility] CERT Core Measure Documentation - Palliative Care Palliative Care/ Comfort Measures: Not Applicable - Core Measures Any of the following diagnoses?: stroke - Stroke Discharge Requirements Statin for LDL = or >70 mg/dl on DC: Yes Anticoag for atrial fib/atrial flutter: Not Applicable Antithrombotic for ischemic stroke: Yes Exam - Constitutional Vitals: Temp Pulse Resp BP Pulse Ox 98.5 F 62 16 129/72 96 04/04/18 11:56 04/04/18 11:56 04/04/18 11:56 04/04/18 11:56 04/04/18 11:56 General appearance: Present: no acute distress, well-nourished - EENT Eyes: Present: PERRL ENT: hearing intact, clear oral mucosa - Neck Neck: Present: supple, normal ROM - Respiratory Respiratory effort: normal Respiratory: bilateral: CTA - Cardiovascular Heart rate: 78 Rhythm: regular Heart Sounds: Present: S1 & S2. Absent: rub, click - Extremities Extremities: pulses symmetrical, No edema Peripheral Pulses: within normal limits - Abdominal General gastrointestinal: Present: soft, non-tender, non-distended, normal bowel sounds Male genitourinary: Present: normal - Integumentary Integumentary: Present: clear, warm, dry - Musculoskeletal Musculoskeletal: gait normal, strength equal bilaterally - Psychiatric Psychiatric: appropriate mood/affect, intact judgment & insight - Neurologic Neurologic: CNII-XII intact, focal deficits (L hemiplegia with 0/5 power) Plan Activity: no restrictions, fall precautions Weight Bearing Status: Weight Bear as Tolerated Diet: low fat, low cholesterol, low salt, diabetic Durable Medical Equipment Needed Upon Discharge: [employer] Follow up with: ABIEL, Primary doctor LUCY [Other] - 04/02/18 Prescriptions: Aspirin [Aspirin TAB] 325 mg PO QDAY #30 tablet AtorvaSTATin [Lipitor] 40 mg PO QHS #30 tablet Clopidogrel [Plavix] 75 mg PO QDAY #30 tablet Furosemide [Lasix TAB] 20 mg PO QDAY #30 tablet oxyCODONE /ACETAMINOPHEN [Percocet 5/325 mg] 1 tab PO Q6H PRN #15 tablet PRN Reason: Pain , Severe (7-10) Polyethylene Glycol 3350 [Miralax] 17 gm PO DAILY 15 Days #1 bottle Other Discharge Orders: Glucometer supplies[Amb] Location: None Selected Glucometer (Amb) Location: None Selected
[2018-04-04] MEDS: PERCOCET 5/325 PO PRN (14:39)
== END 2018-04-04 17:50 | DRG 65 ==
LOC: ED 11:47 → 4A 14:36 → 3A 04-01 17:38
PROVIDERS: ADMIT Internal Medicine; ATTEND Internal Medicine
DX: I63.9 Cerebral infarction, unspecified (principal); G81.94 Hemiplegia, unspecified affecting left nondominant side; I67.1 Cerebral aneurysm, nonruptured; N40.0 Benign prostatic hyperplasia without lower urinary tract symptoms; I10 Essential (primary) hypertension; M10.9 Gout, unspecified; E11.42 Type 2 diabetes mellitus with diabetic polyneuropathy; M19.90 Unspecified osteoarthritis, unspecified site; R47.81 Slurred speech; E11.65 Type 2 diabetes mellitus with hyperglycemia; K59.00 Constipation, unspecified; E78.5 Hyperlipidemia, unspecified; E03.9 Hypothyroidism, unspecified; R29.704 NIHSS score 4; R29.810 Facial weakness; Z79.899 Other long term (current) drug therapy; Z79.4 Long term (current) use of insulin; Z82.49 Family history of ischemic heart disease and other diseases of the circulatory system; Z83.3 Family history of diabetes mellitus; Z82.3 Family history of stroke
CPT/HCPCS: 36415; 70450; 70544; 70551; 76700; 80048; 80053; 80061; 81001; 82607; 82962; 83036; 83690; 84439; 84443; 85025; 85027; 93005; 93010; 93306; 93880; 96374; 96375; G0378; A9270-GY; J1170; J1650; J1815; J2405; J7030